=== PATIENT | female | born 1935 | race Hispanic/Latino ===

== ENCOUNTER 2017-03-11 06:24 | Inpatient (IN) | payer MEDICARE, OTHER ==
[2017-03-11 06:26] VITALS: BMI 20.2
--- NOTE | 2017-03-11 06:54 | CT ---
EXAM: CT Head Without Intravenous Contrast EXAM DATE/TIME: 03/11/2017 6:29 AM CLINICAL HISTORY: 81 years old, female; Signs and symptoms; Syncope and collapse; Additional info: Code stroke TECHNIQUE: Axial computed tomography images of the head/brain without intravenous contrast. All CT scans at this facility use one or more dose reduction techniques, viz.: automated exposure control; ma/kV adjustment per patient size (including targeted exams where dose is matched to indication; i.e. head); or iterative reconstruction technique. Coronal and sagittal reformatted images were created and reviewed. COMPARISON: MR - BRAIN WITHOUT CONTRAST 10/05/2015 9:57:04 AM FINDINGS: Brain: Cerebral atrophy. Small encephalomalacia right parietal convexity. Periventricular and subcortical white matter hypoattenuation of small vessel disease. No edema. No intra-axial or extra-axial hemorrhage. Ventricles: Unremarkable. No ventriculomegaly. Bones/joints: Unremarkable. No acute fracture. Soft tissues: Unremarkable. Vasculature: Vascular calcifications of cavernous carotid arteries. Sinuses: Minimal mucosal thickening sphenoid sinus. Mastoid air cells: Unremarkable as visualized. No mastoid effusion. IMPRESSION: 1. No acute cerebral hemorrhage or edema. 2. 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
--- NOTE | 2017-03-11 06:58 | EDPD ---
HPI Stroke - General Time Seen by Provider: 03/11/17 06:28 Chief Complaint: Weakness/Neurological Deficit Historian: Patient, EMS - History of Present Illness Narrative History of Present Illness (Free Text): 03/11/17 06:54 Pt. presented to ED PMH TIA for evaluation of right upper arm weakness/numbness upon awakening from sleep.States she also felt some facial drooping.States symptoms appear to have resolved upon arrival in ED.Pt. denies any chest pain or sob.No hx. of any fever/cough.No neck or back pain.No headache. Timing: Improved - Location Locate Right: Face, Upper extremity rTPA Inclusion/Exclusion - Refusal of Treatment Patient Refused Treatment: No - Inclusion Criteria for Altepase Patient is 18 years or Older: Yes The Clinical Diagnosis of Ischemic Stroke That is Causing a Potentially Disabling Neurological Deficit: No Time of Onset is Well Established to be Less Than 270 Minute Before Treatment Would Begin: No Risk/Benefit Discussed With Patient/Family Member Present: Yes - Exclusion Criteria for Altepase Uncontrolled Hypertension at Time of Treatment (Systolic BP above 185 or Diastolic BP above 110 mmHg): No Active Internal Bleeding: No Known Bleeding Diathesis Including but Not Limited to: Platelets Below 100,000/ mm,PTT Above 40 sec After Heparin Use, Current Use of Oral Anitcoagulant With INR Greater Than 1.7 or PT Greater Than 15 secs: No Evidence of an Intracranial Hemorrhage: No Evidence of Major Acute Infarct With Signs Greater Than 1/3 MCA Territory: No Suspicion of Subarachnoid Hemorrhage on Pretreatment Evaluation Even if CT Head Negative For Hemorrhage: No - Warning to TPA With Conditions Following Conditions Weighed Against Anticipated Benefit: Yes Condition: Rapid Improvement Past Medical History - Provider Review Nursing Documentation Reviewed: Yes - Travel History Have you recently traveled outside [place] w/in the past 3 mons?: No - Infectious Disease Hx of Infectious Diseases: None - Reproductive Menopause: Yes - Neurological Hx Transient Ischemic Attacks (TIA): Yes - Musculoskeletal/Rheumatological Hx Arthritis: Yes (Hands) - Psychiatric Hx Substance Use: No - Surgical History Hx Tonsillectomy: Yes - Suicidal Assessment Feels Threatened In Home Enviroment: No Family/Social History - Family/Social History Family History: CVA/TIA Allergies/Home Meds Allergies/Adverse Reactions: Allergies codeine Allergy (Verified 03/11/17 06:27) HEADACHE novacaine Allergy (Severe, Uncoded 11/21/13 19:26) Chest pain Home Medications: Home Meds Medication Instructions Recorded Confirmed Nitrofurantoin Macrocrystal 100 mg PO BID 03/11/17 03/11/17 [Nitrofurantoin Macrocrystals] Review of Systems - Review of Systems Constitutional: Normal Eyes: Normal ENT: Normal Respiratory: Normal Cardiovascular: Normal Gastrointestinal: Normal Genitourinary Female: Normal Musculoskeletal: Normal Skin: Normal Neurological: Focal Weakness, Facial Droop Endocrine: Normal Hemo/Lymphatic: Normal Psychiatric: Normal ED Stroke Physical Exam Vital Signs Temp Pulse Resp BP Pulse Ox 03/11/17 06:29 99.0 F 77 18 128/70 96 Temperature: Afebrile Blood Pressure: Normal Pulse: Regular Respiratory Rate: Normal Appearance: Positive for: Well-Appearing, Non-Toxic, Comfortable Pain Distress: None Mental Status: Positive for: Alert and Oriented X 3 Finger Stick Blood Glucose: 169 - Systems Exam Head: Present: Atraumatic, Normocephalic Pupils: Present: PERRL Extroacular Muscles: Present: EOMI Conjunctiva: Present: Normal Mouth: Present: Moist Mucous Membranes Neck: Present: Normal Range of Motion Respiratory/Chest: Present: Clear to Auscultation, Good Air Exchange. No: Respiratory Distress, Accessory Muscle Use Cardiovascular: Present: Regular Rate and Rhythm, Normal S1, S2. No: Murmurs Abdomen: Present: Normal Bowel Sounds. No: Tenderness, Distention, Peritoneal Signs Genitourinary/Pelvic Exam: Present: NI. No: C, E Back: Present: GCS, CN, SP Upper Extremity: Present: Normal Inspection, Neurovascularly Intact. No: Cyanosis, Edema Lower Extremity: Present: Normal Inspection. No: Edema Neurologic: Present: GCS=15, CN II-XII Intact, Speech Normal, Motor Func Grossly Intact, Normal Sensory Function Skin: Present: Warm, Dry, Normal Color. No: Rashes Lymphatic: Present: OX3, NI, NC Psychiatric: Present: Alert, Oriented x 3, Normal Insight, Normal Concentration Medical Decision Making ED Course and Treatment: 03/11/17 06:[address] Raymundo, Patient not a candidate for TPA. Will administer aspirin. 03/11/17 07:00 Patient signed out to Dr. Summers. 03/11/17 07:20 CT Head Without Intravenous Contrast Creator : CALL, ANNDictator : IMPRESSION: 1. No acute cerebral hemorrhage or edema. 2. 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 - RAD Interpretation Radiology Orders: 03/11/17 06:29 HEAD W/O (CODE STROKE) [CT] Stat CHEST PORTABLE [RAD] Stat - Transfer of Care Patient signed out to Dr:: Melina Pending Labs:: Labs/CXR//reassess/final disposition NIHSS Scale ([place]) Time Performed: 06:30 - How Severe is the Stoke Baseline Level of Consciousness: 0=Alert LOC to Questions: 0=Both comments correct LOC to commands: 0=Obeys both correctly Best Gaze: 0=Normal Visual: 0=No visual loss Facial: 0=Normal Motor Arm - Left: 0=No drift Motor Arm - Right: 0=No drift Motor Leg - Left: 0=No drift Motor Leg - Right: 0=No drift Limb Ataxia: 0=Absent Sensory: 1=Mild to moderate loss Best Language: 0=No aphasia Dysarthia: 0=Normal articulation Extinction & Inattention (Neglect): 0=Normal, no object Score: 1 Risk Level: Minor Stroke Risk Disposition/Present on Arrival - Present on Arrival Any Indicators Present on Arrival: No History of DVT/PE: No History of Uncontrolled Diabetes: No Urinary Catheter: No History of Decub. Ulcer: No History Surgical Site Infection Following: None - Disposition Have Diagnosis and Disposition been Completed?: No Diagnosis: Transient ischemic attack (TIA) Disposition Time: 07:00 Condition: STABLE Forms: Edutor (Swedish)
[2017-03-11 07:11] LABS: BASO # 0.03 K/mm3 (0.0-2.0); BASO % 0.3 % (0.0-3.0); EOS # 0.3 (0.0-0.7); EOS % 2.6 % (1.5-5.0); GRAN # 9.07 (1.4-6.5); GRAN % 84.4 % (50.0-68.0); HEMOGLOBIN 11.8 g/dL (12.0-16.0); LYMPH # 0.7 (1.2-3.4); MEAN CELL VOLUME 60.7 fl (80.0-105.0); MEAN CORPUSCULAR HEMOGLOBIN 19.3 pg (25.0-35.0); MEAN CORPUSCULAR HGB CONC 31.8 g/dl (31.0-37.0); MONO # 0.7 (0.1-0.6); MONO % 6.7 % (1.0-6.0); PLATELET COUNT 156 10^3/uL (120.0-450.0); RBC 6.11 10^6/uL (3.5-6.1); RED CELL DISTRIBUTION WIDTH 15.9 % (11.5-14.5); WHITE BLOOD COUNT 10.8 10^3/ul (4.5-11.0)
[2017-03-11 07:22] LABS: ALB/GLOB RATIO 1.3 (1.1-1.8); CALCIUM 9.3 mg/dL (8.4-10.5)
[2017-03-11 07:29] LABS: INR 1.14 (0.93-1.08); PARTIAL THROMBOPLASTIN TIME 26.7 Seconds (25.1-36.5); PROTHROMBIN TIME 13.1 SECONDS (9.4-12.5)
[2017-03-11 07:32] LABS: TROPONIN I 0.02 ng/mL
[2017-03-11] MEDS ORDERED: Azithromycin 500MG/NS 250ml 500 MG/250 ML BAG IVPB STA (07:51)
[2017-03-11] MEDS ORDERED: cefTRIAXone 1 gm 1 GM/100 ML BAG IVPB STA (07:51)
[2017-03-11 09:18] LABS: VENOUS BLOOD GAS BASE EXCESS 6.6 mmol/L (0.0-2.0); VENOUS BLOOD GAS PO2 61 mm/Hg (30-55); VENOUS BLOOD PH 7.42 (7.32-7.43)
--- NOTE | 2017-03-11 09:33 | RAD ---
HISTORY: tia COMPARISON: 11/21/2013 FINDINGS: LUNGS: There is a minimal infiltrate at the right lung base. The lungs are otherwise clear PLEURA: No significant pleural effusion identified, no pneumothorax apparent. CARDIOVASCULAR: Normal. OSSEOUS STRUCTURES: No significant abnormalities. VISUALIZED UPPER ABDOMEN: Normal. OTHER FINDINGS: None. IMPRESSION: There is a minimal infiltrate at the right lung base. The lungs are otherwise clear
--- NOTE | 2017-03-11 10:11 | ED PDOC ---
Physical Exam Vital Signs Temp Pulse Resp BP Pulse Ox 03/11/17 07:53 76 18 124/64 97 03/11/17 06:29 99.0 F 77 18 128/70 96 Finger Stick Blood Glucose: 169 Medical Decision Making ED Course and Treatment: 03/11/17 10:08 Patient endorsed to me from previous shift. Patient re-evaluated by me at 0715 with family at bedside. On re-exam, patient states she is back to her normal self. Denies right hand or arm weakness, denies any difficulty speaking. Family states her symptoms have resolved. Her neuro exam is at baseline on re-exam. Not a tpa candidate as rapid resolution of symptoms. Family reports cough for several weeks. On exam, rhonchi noted at right base, chest xray suggestive of infiltrate/ pneumonia. IV antibiotics initiated. Case d/w Dr. Newby, PMD, accepts admission to her service. Will consult neuro for likely TIA, pneumonia. Denies chest pain or sob. BP stable currently. On nasal cannula oxygen saturations 98%. - Lab Interpretations Lab Results: 03/11/17 07:00 03/11/17 07:00 Lab Results 03/11/17 07:25: Blood Type Confirm O POSITIVE 03/11/17 07:00: Blood Type O POSITIVE, Antibody Screen Negative, BBK History Checked No verified bt 03/11/17 07:00: Sodium 140, Potassium 4.1, Chloride 101, Carbon Dioxide 30, Anion Gap 14, BUN 21, Creatinine 1.1, Est GFR ( Amer) 58, Est GFR (Non- Af Amer) 48, Random Glucose 148 H, Calcium 9.3, Total Bilirubin 1.0, AST 47 H, ALT 38, Alkaline Phosphatase 115, Lactate Dehydrogenase 449, Total Creatine Kinase 48, Troponin I 0.02, Total Protein 7.0, Albumin 4.0, Globulin 3.0, Albumin/Globulin Ratio 1.3, Triglycerides 90, Cholesterol 250 H, LDL Cholesterol Direct 130 H, HDL Cholesterol 72 H 03/11/17 07:00: PT 13.1 H, INR 1.14 H, APTT 26.7 03/11/17 07:00: WBC 10.8, RBC 6.11 H, Hgb 11.8 L, Hct 37.1, MCV 60.7 L, MCH 19.3 L, MCHC 31.8, RDW 15.9 H, Plt Count 156, Gran % 84.4 H, Lymph % (Auto) 6.0 L, [place] % (Auto) 6.7 H, Eos % (Auto) 2.6, Baso % (Auto) 0.3, Gran # 9.07 H, Lymph # 0.7 L, [place] # 0.7 H, Eos # 0.3, Baso # 0.03 - RAD Interpretation Radiology Orders: 03/11/17 06:29 HEAD W/O (CODE STROKE) [CT] Stat CHEST PORTABLE [RAD] Stat - Medication Orders Current Medication Orders: Discontinued Medications Aspirin (Aspirin) 325 mg PO ONCE STA Stop: 03/11/17 07:21 Last Admin: 03/11/17 08:07 Dose: 325 mg Ceftriaxone Sodium (Rocephin 1 Gram Ivpb) 1 gm in 100 mls @ 200 mls/hr IVPB ONCE STA PRN Reason: Protocol Stop: 03/11/17 08:20 Last Admin: 03/11/17 08:55 Dose: 200 mls/hr eMAR Start Stop Document 03/11/17 08:55 [facility] (Rec: 03/11/17 08:56 [facility] [id number]) Intravenous Solution Start Date 03/11/17 Start Time 08:55 End Date 03/11/17 End time 09:25 Total Infusion Time 30 Azithromycin (Zithromax 500mg In Ns) 500 mg in 250 mls @ 166.667 mls/hr IVPB STAT STA PRN Reason: Protocol Stop: 03/11/17 09:20 Disposition/Present on Arrival - Present on Arrival Any Indicators Present on Arrival: No History of DVT/PE: No History of Uncontrolled Diabetes: No Urinary Catheter: No History of Decub. Ulcer: No History Surgical Site Infection Following: None - Disposition Have Diagnosis and Disposition been Completed?: Yes Diagnosis: Transient ischemic attack (TIA), Pneumonia Disposition: HOSPITALIZED Disposition Time: 08:00 Patient Plan: Admission, Telemetry Patient Problems: Current Active Problems Problem Status Onset Transient ischemic attack (TIA) Acute Condition: SERIOUS NIHSS Scale([place]) 2 Time Performed: 07:30 - How Severe is the Stoke Baseline Level of Consciousness: 0=Alert LOC to Questions: 0=Both comments correct LOC to commands: 0=Obeys both correctly Best Gaze: 0=Normal Visual: 0=No visual loss Facial: 0=Normal Motor Arm - Left: 0=No drift Motor Arm - Right: 0=No drift Motor Leg - Left: 0=No drift Motor Leg - Right: 0=No drift Limb Ataxia: 0=Absent Sensory: 0=Normal Best Language: 0=No aphasia Dysarthia: 0=Normal articulation Extinction & Inattention (Neglect): 0=Normal, no object Score: 0 Risk Level: No Stroke Risk
--- NOTE | 2017-03-11 12:09 | CP.PCM.CON ---
History of Present Illness - History of Present Illness History of Present Illness: 81 yr old woman who was in her usual state of health last night with no neurological complaints, and then woke up this morning with right arm numbness and paresthesias, and some difficulty speaking. The time of onset was unclear, therefore, she is not a TPA candidate. She came in to the ER at around 6:30 and by 715 AM, her symptoms had resolved. There is a history of prior tias, but there is no history of afib noted, or cardiac issues. She does not currently have any deficits, and is back to her baseline. No headache, no nausea, no vomiting, no dizziness, no visual field cuts. On exam this morning, she has no deficits. Review of Systems - Neurological Neurological: Paresthesias, Tingling Past Patient History - Infectious Disease Hx of Infectious Diseases: None - Past Social History Smoking Status: Former Smoker - CARDIAC Hx Hypercholesterolemia: Yes - NEUROLOGICAL Hx Transient Ischemic Attacks (TIA): Yes - MUSCULOSKELETAL/RHEUMATOLOGICAL Hx Arthritis: Yes (Hands) - PSYCHIATRIC Hx Substance Use: No - SURGICAL HISTORY Hx Tonsillectomy: Yes Meds Allergies/Adverse Reactions: Allergies Allergy/AdvReac Type Severity Reaction Status Date / Time codeine Allergy HEADACHE Verified 03/11/17 06:27 novacaine Allergy Severe Chest pain Uncoded 11/21/13 19:26 Physical Exam - Head Exam Head Exam: ATRAUMATIC Results - Vital Signs Recent Vital Signs: Last Vital Signs Temp 99.0 F 03/11/17 06:29 Pulse 76 03/11/17 07:53 Resp 18 03/11/17 07:53 BP 124/64 03/11/17 07:53 Pulse Ox 97 03/11/17 07:53 - Labs Result Diagrams: 03/11/17 07:00 03/11/17 07:00 Labs: Laboratory Results - last 24 hr 03/11/17 09:00 pO2 61 H VBG pH 7.42 VBG pCO2 50.0 VBG HCO3 32.4 H VBG Total CO2 33.9 H VBG O2 Sat (Calc) 94.6 H VBG Base Excess 6.6 H VBG Potassium 4.0 Sodium 137.0 Chloride 105.0 Glucose 127 H Lactate 1.0 FiO2 21.0 Venous Blood Potassium 4.0 Assessment & Plan - Assessment and Plan (Free Text) Assessment: 81 yr old woman with most likely tia in the left mca distribution, who is back to baseline. She will, however, need a complete stroke/tia workup. She is not a TPA candidate. Patient to be followed by Plan: 1. MRI Brain without kelsea 2. Echo 3. Carotid Dopplers 4. Start aspirin 325 mg po daily 5. Lipid profile 6. No speech or physical therapy needed.
--- NOTE | 2017-03-11 12:21 | CARD ---
APPROVED REPORT EKG Measurement Heart [id number] DC [id number] <Conclusion> Normal sinus rhythm Cannot rule out Anterior infarct, age undetermined Abnormal ECG
--- NOTE | 2017-03-11 13:08 | CT ---
PROCEDURE: CT Angiography of the neck with contrast HISTORY: TIA COMPARISON: None available. TECHNIQUE: Contiguous axial images of the neck were obtained from the level of the skull-base to the superior mediastinum in the arteriographic phase of enhancement. Coronal and sagittal reformats or also generated. IV contrast dose: 150 cc of Omni 350 Radiation Dose - DLP: 230 mGy-cm This CT exam was performed using one or more of the following dose reduction techniques: Automated exposure control, adjustment of the mA and/or kV according to patient size, and/or use of iterative reconstruction technique. FINDINGS: RIGHT CAROTID ARTERIES: Common Carotid Artery: Normal. Carotid Bifurcation: Normal. Internal Carotid Artery:Normal. External Carotid Artery (proximal branches): Normal. LEFT CAROTID ARTERIES: Common Carotid Artery: Normal. Carotid Bifurcation: Normal. Internal Carotid Artery:Normal. External Carotid Artery (proximal branches): Normal. VERTEBRAL ARTERIES: Right Vertebral Artery: Normal. Left Vertebral Artery: Normal. OTHER FINDINGS: None. IMPRESSION: Normal CT Angiography of the neck. CT Angiography of the Brain. HISTORY: TIA COMPARISON: None available. TECHNIQUE: CT angiography of the intracranial arteries was performed. Coronal and sagittal maximum intensity projection reformated images were generated. This CT exam was performed using one or more of the following dose reduction techniques: Automated exposure control, adjustment of the mA and/or kV according to patient size, and/or use of iterative reconstruction technique. FINDINGS: INTERNAL CEREBRAL ARTERIES: Unremarkable. The skull base, petrous, cavernous and supraclinoid segments are bilaterally widely patent. ANTERIOR CEREBRAL ARTERIES: Unremarkable. A1 and A2 segments are widely patent. Smaller distal branches unremarkable, as visualized. MIDDLE CEREBRAL ARTERIES: Unremarkable. M1 and M2 segments are widely patent. Perisylvian branches grossly symmetric. POSTERIOR CIRCULATION: Basilar Artery: Unremarkable. Distal Vertebral Arteries: Unremarkable. Posterior Cerebral Arteries: Unremarkable. Posterior Inferior Cerebellar Arteries: Unremarkable. ANEURYSM/ VASCULAR MALFORMATIONS: None. OTHER FINDINGS: None. IMPRESSION: Unremarkable CT Angiography of the Brain.
--- NOTE | 2017-03-11 15:27 | MRI ---
PROCEDURE: MRI BRAIN WITHOUT CONTRAST HISTORY: tia COMPARISON: None. TECHNIQUE: Multiplanar, multisequence MR images of the brain were obtained without intravenous contrast enhancement. FINDINGS: HEMORRHAGE: None DWI: No evidence of an acute or early subacute infarction. BRAIN PARENCHYMA: No mass effect or edema. Severe chronic microvascular changes are seen in the periventricular white matter. There is a more focal chronic infarct in the right parietal white matter VENTRICLES: Unremarkable. No hydrocephalus. CRANIUM: Unremarkable. ORBITS: Grossly unremarkable. PARANASAL SINUSES/MASTOIDS: There is mucosal thickening in the sphenoid sinus VASCULAR SYSTEM: Skull base flow voids intact. OTHER FINDINGS: None. IMPRESSION: Severe chronic microvascular changes. No acute intracranial findings
[2017-03-11] MEDS ORDERED: Influenza Vaccine 60 mcg/0.5 mL SYR (4YR UP) IM ONE (18:15)
[2017-03-11] MEDS ORDERED: Pneumococcal 23-Valent Vaccine IM ONE (18:15)
--- NOTE | 2017-03-11 18:41 | CON ---
DATE: 03/11/2017 CHIEF COMPLAINT: Signs of right arm numbness and paresthesia, and difficulty speaking. HISTORY OF PRESENT ILLNESS: This is an 81-year-old woman with past medical history of hypercholesterolemia, former smoker, who came in; woke up this morning with right arm numbness and paresthesia, transient, with some difficulty speaking which resolved when she came into the ER. MRI of the brain showed no acute intracranial abnormalities, chronic ischemic changes. CT angio of the head was unremarkable. Currently, she is doing much better. No focal weakness of the extremities. PAST MEDICAL HISTORY: Hypercholesterolemia, former smoker. SOCIAL HISTORY: Former smoker. No illicit drug use, smoking, or EtOH abuse. ALLERGIES: ALLERGIC TO CODEINE. MEDICATIONS: Reviewed by nurse per reconciliation sheet. PHYSICAL EXAMINATION: VITAL SIGNS: Temperature 99, pulse rate 68, blood pressure 119/69, respiratory rate 18, oxygen saturation 97% by room air. GENERAL: The patient is sitting up in bed, in no acute distress. HEENT: Head is atraumatic and normocephalic. PERRLA. Extraocular muscles intact. NECK: Supple. No JVD. No adenopathy noted. LUNGS: Clear to auscultation. No adventitious sounds. HEART: S1 and S2. Normal rate and rhythm. No murmurs, rubs, or gallops. ABDOMEN: Soft, nontender, and nondistended. Bowel sounds present. EXTREMITIES: No clubbing. No cyanosis. Peripheral pulses are 2+ felt bilaterally. NEUROLOGIC: The patient is alert and oriented to person, place, month, and year. Speech is fluent without any errors. Cranial nerves II through XII intact. Motor exam: Moves all extremities equally . Toes are downgoing bilaterally. Sensory exam to light touch, pinprick, proprioception, and vibration intact. DTRs are 2+ throughout. Coordination, [id number] intact. Gait is deferred for now. LABORATORY DATA: Sodium 140, potassium 4.1, chloride of 101, carbon dioxide of 30, BUN of 21, creatinine of 1.1, glucose of 148, A1c 6, cholesterol 250, LDL is 130. ASSESSMENT AND PLAN: This is a 31-year-old woman with history of former smoker and dyslipidemia. Had transient slurred speech and right arm numbness and weakness which had resolved. MRI of the brain showed no acute intracranial abnormalities, just chronic ischemic changes. At this time, her symptoms are most likely secondary to underlying transient ischemic attack. RECOMMENDATIONS: 1. Aspirin 81 mg and Lipitor 40 mg p.o. daily for stroke prevention. 2. Echocardiogram. 3. Needs low fat, low cholesterol diet. 4. Follow up as an outpatient. Kang Wright MD
[2017-03-11 18:59] LABS: PH,URINE 6.5 (4.7-8.0); URINE BILIRUBIN NEGATIVE (NEGATIVE); URINE BLOOD SMALL (NEGATIVE); URINE GLUCOSE (UA) NEGATIVE (NEGATIVE); URINE LEUKOCYTE ESTERASE SMALL Leu/uL (NEGATIVE); URINE NITRATE POSITIVE (NEGATIVE); URINE PROTEIN NEGATIVE mg/dL (<30 mg/dL); URINE UROBILINOGEN 0.2 E.U./dL (<1 E.U./dL)
[2017-03-11 19:02] LABS: URINE APPEARANCE SL CLOUDY (CLEAR); URINE COLOR YELLOW (YELLOW)
[2017-03-11 19:08] LABS: URINE BACTERIA LARGE (NEG); URINE WBC 20 - 25 /hpf (0-6)
--- NOTE | 2017-03-11 19:29 | US ---
EXAM: US Pelvis Ltd Bladder EXAM DATE/TIME: 03/11/2017 4:54 PM CLINICAL HISTORY: 81 years old, female; Abnormal findings; Abnormal lab test; Microscopic hematuria; Additional info: Gross hematuria, urinary retention? TECHNIQUE: Real-time ultrasound of the bladder with image documentation. COMPARISON: US - BLADDER ONLY/RESIDUAL URINE 2015-09-05 14:30 FINDINGS: Urinary bladder is distended. Estimated bladder volume is 1284 cc. Postvoid imaging was performed. Bladder remains distended. Estimated postvoid residual volume is 971 cc. IMPRESSION: 75% post void residual
--- NOTE | 2017-03-11 19:32 | US ---
EXAM: US Retroperitoneal Limited, Renal EXAM DATE/TIME: 03/11/2017 4:54 PM CLINICAL HISTORY: 81 years old, female; Abnormal findings; Abnormal lab test; Abnormal kidney function lab tests; Additional info: Gross hematuria, TECHNIQUE: Real-time ultrasound of the retroperitoneum (limited) with image documentation. COMPARISON: US - RENAL 2015-09-05 14:22 FINDINGS: Right kidney: Right kidney measures approximately 10 x 5.4 x 6 cm. There is intrarenal flow on color imaging. There is pelvocaliectasis. Corticomedullary differentiation is not visualized. Left kidney: Left kidney measures approximately 9.7 x 5.8 x 5 cm. There is pelvocaliectasis.There is intrarenal flow on color imaging. There is pelvocaliectasis. Corticomedullary differentiation is not visualized. IMPRESSION: Bilateral pelvocaliectasis
[2017-03-12 07:02] VITALS: O2SAT 100
[2017-03-12 07:05] LABS: HEMOGLOBIN 10.5 g/dL (12.0-16.0); MEAN CELL VOLUME 60.4 fl (80.0-105.0); MEAN CORPUSCULAR HEMOGLOBIN 19.3 pg (25.0-35.0); PLATELET COUNT 169 10^3/uL (120.0-450.0); RBC 5.43 10^6/uL (3.5-6.1); WHITE BLOOD COUNT 6.8 10^3/ul (4.5-11.0)
[2017-03-12 07:31] LABS: ALB/GLOB RATIO 1.2 (1.1-1.8); ALBUMIN 3.4 g/dL (3.0-4.8); ALT/SGPT 66 U/L (7-56); AST/SGOT 82 U/L (14-36); BLOOD UREA NITROGEN 27 mg/dL (7-21); CALCIUM 8.7 mg/dL (8.4-10.5); GFR AFRICAN-AMERICAN > 60; GFR NON-AFRICAN AMERICAN 53
--- NOTE | 2017-03-12 08:14 | HP ---
CHIEF COMPLAINT: Weakness. HISTORY OF PRESENT ILLNESS: An 81-year-old female with history of hyperlipidemia and old CVA who was brought to Emergency Room by her family. The patient woke up this morning with fatigue and weakness. She complaint of having slurred speech and weakness in her right hand. She denies any headache, blurry vision, or loss of consciousness. The patient was brought to Emergency Room by her daughter for evaluation. She felt better in Emergency Room and her symptoms resolved. The patient denies any fever. She has some cough for the past 2 weeks due to cold symptoms, but denies any shortness of breath or chest pain. 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 PAST SURGICAL HISTORY: Denies any surgical history. ALLERGIES: THE PATIENT HAS ALLERGIES TO CODEINE AND NOVOCAIN. PRESENT MEDICATIONS: She is not taking any medication. The patient has aspirin 81 mg daily and lovastatin 20 mg daily, but stopped both medications 2 months ago. FAMILY HISTORY: History of heart disease. No history of stroke or cerebellar bleeding. SOCIAL HISTORY: The patient denies current smoking. She is ex-smoker, but quit 30 years ago. The patient denies any alcohol or drug use. She is retired. She is a . She lives presently with her daughter. The patient is fully independent of activity of daily living. The patient is still working part-time in school. REVIEW OF SYSTEMS: The patient denies any loss of appetite, weight loss. She denies any fever. She denies any dysphagia, sore throat. Denies any nasal congestion. The patient complains of dry cough. Denies any chest pain or shortness of breath or wheezing. Denies any diaphoresis or heart palpitation. The patient denies any abdominal pain, diarrhea, constipation, nausea, or vomiting. The patient complains of urinary discomfort and urine of brown color for the past 10 days. She was recently treated for urinary tract infection and finished antibiotics. Neurological; the patient denies any blurry vision, dysphagia. Denies any weakness. Extremities; she complains of tingling and numbness of both feet. She complaints of chronic anxiety. Difficult with sleeping, but denies any depression. PHYSICAL EXAMINATION GENERAL: The patient was evaluated, alert, awake, oriented, in no acute form of distress. VITAL SIGNS: Stable, she is afebrile, temperature 99, pulse 80, regular, blood pressure 122/78, respiratory rate 16, oxygen saturation 95% on room air. HEENT: Head is normocephalic, atraumatic. Eyes with pupils reactive to light. Oral mucosa is moist. No lesions. NECK: Supple. No neck masses or JVD. LUNGS: Clear to auscultation. HEART: With regular rhythm and rate. ABDOMEN: Soft, nontender, nondistended. No masses palpable. Bowel sounds are positive. EXTREMITIES: With no edema and palpable distal pulses. There are chronic skin changes related to chronic varicose vein. NEUROLOGIC: Alert, awake, and oriented. Normal gag reflex. No sensory, motor deficit. No pathological deficits. DIAGNOSTIC TEST: CBC showed WBC 10.8, hemoglobin 11.8, hematocrit 37.1, platelet count 156. Chemistries showed normal electrolytes with normal renal function. BUN 21, creatinine 1.1, random glucose was 148. Cholesterol high 250 with LDL 130 and HDL 72. Urinalysis is still pending. Ct scan of head showed old right parietal CVA , no acute bleeding or ischemia. ASSESSMENT: 1. An 81-year-old female admitted for nonspecific neurological symptoms, must rule out transient ischemic attack versus cerebrovascular accident. 2. Hyperlipidemia. 3. Right lung infiltration rule out pneumonia. 4. Gross hematuria. PLAN OF TREATMENT: Will be admitted for observation to telemetry. We will monitor neurological status. Neurologist was called in consult. Continue aspirin. We will start atorvastatin. Due to abnormal chest x-ray, the patient was treated with Rocephin and Zithromax. We will continue Zithromax p.o. I will order renal and bladder ultrasound for evaluation of recurrent UTIs and gross hematuria. Angélica Guerrero MD [facility]
[2017-03-12 12:18] VITALS: BP 110/60; PULSE 82; RESP 18; TEMP 99.1
--- NOTE | 2017-03-12 15:17 | DS ---
HISTORY OF PRESENT ILLNESS: The patient was admitted for new onset of numbness, slurred speech with symptoms resolved yesterday in the emergency room. The patient is feeling well. She denies any headache, dizziness, numbness or weakness. Her appetite is fair. The patient continues with voiding darker brown urine, but she denies any abdominal pain or dysuria. PHYSICAL EXAMINATION GENERAL: She is comfortable, alert, awake, oriented. VITAL SIGNS: This morning are stable, her temperature 99, pulse 75 and regular, blood pressure 96/47, respiratory rate 20, her oxygen saturation is 100% on room air. HEENT: Head is normocephalic, atraumatic. Eyes: Pupils are reactive to light. No jaundice. Oral mucosa is moist NECK: Supple. LUNGS: Clear to auscultation. HEART: Regular rhythm and rate. ABDOMEN: Soft, nontender, nondistended. No masses palpable. EXTREMITIES: With no edema. DIAGNOSTIC STUDIES: This morning pertinent finding, WBC normal at 6.8, hemoglobin at 10.5, hematocrit 32.8. Her chemistry is normal. Urinalysis showed positive nitrite and small amount of blood. Urine culture is still pending. Her MRI and MRA of the brain were read as normal, except an old right CVA. Echocardiogram is still pending. Renal and bladder ultrasounds are significant for bilateral hydronephrosis, no kidney stones. There is also significant urinary retention of 900 mL after the patient voided. ASSESSMENT: 1. An 81-year-old female with episode of transient ischemic attack, which resolved in the emergency room. 2. Hematuria with hydronephrosis and urinary retention. 3. Abnormal chest x-ray with small infiltration in the right lung, patient is asymptomatic. 4. Hyperlipidemia. PLAN OF TREATMENT: I requested Urology consult for evaluation of hydronephrosis and urinary retention. We are planning to discharge the patient home this afternoon if no other procedures are planned from Urology side. The patient will be resuming lovastatin 20 mg daily and one aspirin 81 mg daily. The patient will be also discharged home with a dose of Levaquin 500 mg once a day for 7 days. The patient was advised to follow up with primary care physician and urologist as outpatient. Angélica Guerrero MD [facility] # [id number] MTDD
--- NOTE | 2017-03-12 17:20 | CARD ---
APPROVED REPORT EXAM: Two-dimensional and M-mode echocardiogram with Doppler and color Doppler. INDICATION CVA/TIA 2D DIMENSIONS Left Atrium (2D)3.2 (1.6-4.0cm)IVSd0.7 (0.7-1.1cm) LVDd4.1 (3.9-5.9cm)PWd0.9 (0.7-1.1cm) LVDs2.4 (2.5-4.0cm)FS (%) 40.1 % LVEF (%)71.3 (>50%) M-Mode DIMENSIONS Aortic Root3.10 (2.2-3.7cm)Aortic Cusp Exc.1.50 (1.5-2.0cm) Aortic Valve AoV Peak Bbzpibyk444.0cm/La Peak GR.11mmHg Mitral Valve MV E Qfqbavjq34.4cm/sMV A Nuiivmde090.0cm/sE/A ratio0.8 TDI Lateral E' Peak V5.65cm/sMedial E' Peak V4.58cm/sE/Lateral E'15.3 E/Medial E'18.9 Pulmonary Valve PV Peak Hzhdtoit15.0cm/sPV Peak Grad.2mmHg Tricuspid Valve TR Peak Nibxbfpf400js/sRAP WNDCMETP17nhKzZC Peak Gr.27mmHg [id number] LEFT VENTRICLE The left ventricle is normal size. There is normal left ventricular wall thickness. The left ventricular function is normal. The left ventricular ejection fraction is within the normal range. There is normal LV segmental wall motion. Transmitral Doppler flow pattern is Grade I-abnormal relaxation pattern. RIGHT VENTRICLE The right ventricle is normal size. There is normal right ventricular wall thickness. The right ventricular systolic function is normal. ATRIA The left atrium size is normal. The right atrium size is normal. AORTIC VALVE The aortic valve is mildly sclerotic. No aortic regurgitation is present. There is no aortic valvular stenosis. MITRAL VALVE The mitral valve is mildly thickened. Mitral regurgitation is trace. TRICUSPID VALVE There is mild tricuspid regurgitation. There is mild pulmonary hypertension. GREAT VESSELS The aortic root is normal in size. <Conclusion> The left ventricle is normal size. There is normal left ventricular wall thickness. The left ventricular function is normal. The left ventricular ejection fraction is within the normal range. There is normal LV segmental wall motion. Transmitral Doppler flow pattern is Grade I-abnormal relaxation pattern. There is mild tricuspid regurgitation. There is mild pulmonary hypertension.
--- NOTE | 2017-03-13 00:47 | US ---
PROCEDURE: Bilateral carotid artery duplex ultrasound HISTORY: Carotid stenosis PHYSICIAN(S): Geovani Steele MD. TECHNIQUE: Duplex sonography and color-flow Doppler were used to evaluate the carotid bifurcations and limited segments of the vertebral arteries bilaterally. FINDINGS: There is mild to moderate smooth heterogeneous plaque noted at the carotid bifurcations bilaterally. The peak systolic velocity in the proximal right internal carotid artery is 126 cm/sec. This corresponds to a 40-59 percent proximal right ICA stenosis. Normal systolic velocities are noted in the proximal right external carotid artery. There is antegrade flow in the right vertebral artery. The peak systolic velocity in the proximal left internal carotid artery is 141 cm/sec. This corresponds to a 40-59 percent proximal left ICA stenosis. Normal systolic velocities are noted in the proximal left external carotid artery. There is antegrade flow in the left vertebral artery. IMPRESSION: 1. Bilateral 40-59 percent proximal ICA stenoses. 2. Antegrade flow in both vertebral arteries.
--- NOTE | 2017-03-13 13:51 | PQF PNEUMO ---
DR. STANTON, Please verify if PNEUMONIA was ruled in or ruled out. This form is a permanent part of the medical record Clarification of your documentation is requested to better reflect the severity of illness and intensity of treatment of your patient. Indicators present [] Documented diagnosis of pneumonia [X] X-ray findings: [] Positive Sputum cultures [] Cough w/ fever [] Abnormal lungs sounds [] Poor gag reflex [] Speech consults/swallow evaluation [] Vent dependence [] Other: [] Location in the medical record that reflects the above clinical findings: [] H&P rule out pneumonia Treatment Provided: IV Rocephin , oral Zithromax PHYSICIAN'S RESPONSE Based on your medical judgment of the clinical indicators outlined above, are you treating this patient for a known or suspected: [] Aspiration pneumonia [] Community acquired pneumonia [] Ventilator associated pneumonia [] Viral pneumonia [] Bacterial pneumonia Please specify organism: [] [] Other, please indicate [X] If Unable to Determine, please check the box, sign and date. Present On Admission (POA) Indicator: [] Present at the time of admission [] Not present at the time of admission [X] Clinically Undetermined In responding to this query, please exercise your independent professional judgment. The fact that a question is asked does not imply that any particular answer is desired or expected. Thank you for your clarification on this documentation. If you have any questions please call:[ ] * Thank you, [X] ALEYDA tape cutter [facility]
== END 2017-03-12 18:19 | disposition home or self-care (01) | DRG 69 ==
LOC: ED 06:24 → ERH 07:54 → 3RSO 15:39
PROVIDERS: ADMIT Family Medicine; ATTEND Family Medicine
DX: G45.9 Transient cerebral ischemic attack, unspecified (principal); N13.30 Unspecified hydronephrosis; R31.0 Gross hematuria; E78.00 Pure hypercholesterolemia, unspecified; Z86.73 Personal history of transient ischemic attack (TIA), and cerebral infarction without residual deficits; Z87.891 Personal history of nicotine dependence

== ENCOUNTER 2017-03-22 01:06 | Inpatient (IN) | payer MEDICARE, OTHER ==
--- NOTE | 2017-03-22 01:25 | EDPD ---
HPI Stroke - General Time Seen by Provider: 03/22/17 01:08 Chief Complaint: Weakness/Neurological Deficit Historian: EMS - History of Present Illness Narrative History of Present Illness (Free Text): 03/22/17 01:10 Kellen Zavala is an 81 year old female, whose past medical history includes TIA, who presents to the Emergency department brought in by EMS for altered mental status and left-sided weakness tonight. As per EMS, patient has been experiencing diffuse headache and lethargy for the past 2 days. EMS states patient called her daughter at 00:00, but daughter noted patient was not making any sense while talking on the phone. Daughter states after arriving to check on the patient, patient was altered/disoriented and had 1 seizure for approximately 5 minutes. EMS states en route to the hospital, patient had 2 more focal seizures on her left upper extremity. EMS also note left upper extremity weakness. Code Stroke called by EMS while en route to ER. Patient was recently admitted to the hospital on 03/11/2017 for TIA and treated for UTI. Limited HPI and ROS secondary to patient's altered mental status. Date:: 03/22/17 Time: 01:10 Onset:: Just prior to presenting Timing: Currently Symptomatic Context: Home Associated Symptoms: Dysarthria, Seizure Exacerbated by: Nothing Relieved by: Nothing - Location Location: Mental Status, Speech Locate Left: Upper extremity rTPA Inclusion/Exclusion - Refusal of Treatment Patient Refused Treatment: No - Inclusion Criteria for Altepase Patient is 18 years or Older: Yes The Clinical Diagnosis of Ischemic Stroke That is Causing a Potentially Disabling Neurological Deficit: Yes Time of Onset is Well Established to be Less Than 270 Minute Before Treatment Would Begin: Yes Risk/Benefit Discussed With Patient/Family Member Present: Yes - Exclusion Criteria for Altepase Uncontrolled Hypertension at Time of Treatment (Systolic BP above 185 or Diastolic BP above 110 mmHg): No Active Internal Bleeding: No Known Bleeding Diathesis Including but Not Limited to: Platelets Below 100,000/ mm,PTT Above 40 sec After Heparin Use, Current Use of Oral Anitcoagulant With INR Greater Than 1.7 or PT Greater Than 15 secs: No Evidence of an Intracranial Hemorrhage: No Evidence of Major Acute Infarct With Signs Greater Than 1/3 MCA Territory: No Suspicion of Subarachnoid Hemorrhage on Pretreatment Evaluation Even if CT Head Negative For Hemorrhage: No - Warning to TPA With Conditions Following Conditions Weighed Against Anticipated Benefit: Yes Condition: Seizure at Onset of Stroke Past Medical History - Provider Review Nursing Documentation Reviewed: Yes - Infectious Disease Hx of Infectious Diseases: None - Cardiac Hx Cardiac Disorders: Yes - Pulmonary Hx Respiratory Disorders: Yes (used to smoke cigarettes.Quit) - Neurological Hx Neurological Disorder: Yes Hx Transient Ischemic Attacks (TIA): Yes - HEENT Hx HEENT Disorder: Yes (tonsillectomy) Hx Deafness: Yes (right ear.) - Renal Hx Renal Disorder: No - Endocrine/Metabolic Hx Endocrine Disorders: No - Hematological/Oncological Hx Blood Disorders: No - Integumentary Hx Dermatological Disorder: Yes Other/Comment: Bilateral le redness,cellulitis,flushed painful skin. - Musculoskeletal/Rheumatological Hx Musculoskeletal Disorders: Yes Hx Arthritis: Yes (Hands) Hx Falls: Yes - Gastrointestinal Hx Gastrointestinal Disorders: No - Genitourinary/Gynecological Hx Genitourinary Disorders: Yes Hx Urinary Tract Infection: Yes - Psychiatric Hx Psychophysiologic Disorder: No Hx Depression: No Hx Emotional Abuse: No Hx Physical Abuse: No Hx Substance Use: No - Surgical History Hx Tonsillectomy: Yes - Anesthesia Hx Anesthesia: Yes Hx Anesthesia Reactions: No Hx Malignant Hyperthermia: No - Suicidal Assessment Feels Threatened In Home Enviroment: No Family/Social History - Family/Social History Family History: Non-Contributory - DrMiguel Review Nursing documentation reviewed.: Yes Allergies/Home Meds Allergies/Adverse Reactions: Allergies codeine Allergy (Verified 03/22/17 01:09) HEADACHE novacaine Allergy (Severe, Uncoded 03/22/17 01:09) Chest pain Home Medications: Home Meds Medication Instructions Recorded Confirmed Nitrofurantoin Macrocrystal 100 mg PO BID 03/11/17 03/11/17 [Nitrofurantoin Macrocrystals] Review of Systems - Review of Systems Systems not reviewed;Unavailable: Altered Mental Status Neurological: Focal Weakness (+left upper extremity weakness), Seizure, Other (+ altered mental status) ED Stroke Physical Exam Vital Signs Reviewed: Yes Temperature: Afebrile Blood Pressure: Normal Pulse: Regular Respiratory Rate: Normal Appearance: Positive for: Non-Toxic Mental Status: Positive for: Lethargic - Systems Exam Head: Present: Atraumatic, Normocephalic Pupils: Present: PERRL Extroacular Muscles: Present: Other (Left-sided deviation, fixed gaze) Conjunctiva: Present: Normal Mouth: Present: Moist Mucous Membranes Respiratory/Chest: Present: Clear to Auscultation, Good Air Exchange. No: Respiratory Distress, Accessory Muscle Use Cardiovascular: Present: Regular Rate and Rhythm, Normal S1, S2. No: Murmurs Abdomen: Present: Normal Bowel Sounds. No: Tenderness, Distention, Peritoneal Signs Upper Extremity: Present: Capillary Refill < 2s, Other (Flaccid left upper extremity). No: Cyanosis, Edema, Tenderness, Swelling, Erythema Lower Extremity: No: Edema Neurologic: Present: Pronator Drift (Flaccid left upper extremity) Skin: Present: Warm, Dry, Normal Color. No: Rashes Psychiatric: Present: Lethargic Medical Decision Making ED Course and Treatment: 03/22/17 01:10 Impression: 81 year old female brought in for altered mental status, seizure, and left- sided weakness prior to arrival. Differential Diagnosis included but are not limited to: TIA vs. CVA Plan: -- CT Head -- EKG --Chest X-ray -- Labs, troponin, lipid panel, blood type and screen -- Reassess and disposition Prior Visits: Notes and results from previous visits were reviewed. On 03/11/2017, pt was seen in the Emergency department for right arm weakness/ numbness and facial droop. Pt was admitted to the hospital for further evaluation. Progress Notes: Code Stroke called by EMS en route to ER. Pt seen on arrival, taken to CT scan. 03/22/17 01:25 Reviewed EKG, sinus tachycardia at 112 bpm[address] Non-specific ST/T wave changes. 03/22/17 01:30 Chest X-ray reviewed, shows no acute processes. CT Head shows: Brain: Bilateral white matter changes. This is nonspecific and may include microangiopathic disease, small lacunae of indeterminate chronicity, chronic infarcts and/or encephalomalacia. Right parietal encephalomalacia. Atrophy. Vascular calcification. No hemorrhage. No edema. Ventricles: No hydrocephalus. Bones: Skull is intact. Sinuses: Trace left sphenoid sinus disease. Mastoid air cells: No mastoid effusion. IMPRESSION: Chronic changes as above. Acute infarcts/early ischemic changes may not be detectable by this modality; MRI is more sensitive in detecting acute ischemia. 03/22/17 01:[address] Guerra, neurologist, who is aware and agrees with plan. States pt is a candidate for tPA 03/22/17 01:49 Discussed results and plan with family present at bedside. Family report patient has been experiencing dark stools for 1 week. Rectal exam performed, RN present as dry cleaning checker, Guaiac negative. Discussed tPA with family, family unsure if they want to proceed with tPA at this time. 03/22/17 02:18 Spoke with family at beside. Family now agreeable with plan to administer tPA, consent given by family.explained all risks of internal bleeding, family aware of risks consent to tpa Case discussed with Dr. Newby, who is aware and agrees with plan. Accepts pt in to her service. 03/22/17 03:[address] Cueva, epic professional, who is aware and agrees to evaluate pt. Pt will be admitted to ICU for cerebral infarction. 03/22/17 14:49 - Critical Care Critical Care Minutes: 30 minutes Narrative Critical Care (Text): Management of cerebral infarction - Lab Interpretations I have reviewed the lab results: Yes - RAD Interpretation Radiology Orders: 03/22/17 01:09 HEAD W/O (CODE STROKE) [CT] Stat 03/22/17 01:15 CHEST PORTABLE [RAD] Stat Wax Machine Operator: ED Physician, Radiologist - EKG Interpretation Interpreted by ED Physician: Yes Type: 12 lead EKG - Scribe Statement The provider has reviewed the documentation as recorded by the Scribevin Saldana Provider Scribe Attestation: All medical record entries made by the Scribe were at my direction and personally dictated by me. I have reviewed the chart and agree that the record accurately reflects my personal performance of the history, physical exam, medical decision making, and the department course for this patient. I have also personally directed, reviewed, and agree with the discharge instructions and disposition. NIHSS Scale ([place]) Time Performed: 01:10 - How Severe is the Stoke Baseline Level of Consciousness: 1=Drowsy LOC to Questions: 1=One correct LOC to commands: 1=Obeys one correctly Best Gaze: 2=Forced deviation Visual: 0=No visual loss Facial: 1=Minor asymmetry Motor Arm - Left: 3=No effort against gravity (falls immediately) Motor Arm - Right: 1=Drift noted before 10 sec Motor Leg - Left: 3=No effort against gravity (falls immediately) Motor Leg - Right: 3=No effort against gravity (falls immediately) Limb Ataxia: 1=Present Upper or Lower Sensory: 1=Mild to moderate loss Best Language: 1=Mild to moderate aphasia Dysarthia: 1=Mild to moderate slurring Extinction & Inattention (Neglect): 0=Normal, no object Score: 20 Risk Level: Mod/Sev Stroke Risk Disposition/Present on Arrival - Present on Arrival Any Indicators Present on Arrival: No History of DVT/PE: No History of Uncontrolled Diabetes: No Urinary Catheter: No History of Decub. Ulcer: No History Surgical Site Infection Following: None - Disposition Have Diagnosis and Disposition been Completed?: Yes Diagnosis: Cerebral vascular accident Disposition: HOSPITALIZED Disposition Time: 03:20 Condition: CRITICAL
--- NOTE | 2017-03-22 01:31 | CT ---
EXAM: CT Head Without Intravenous Contrast CLINICAL HISTORY: 81 years old, female; Signs and symptoms; Other: Code stroke; Additional info: CVA TECHNIQUE: Axial computed tomography images of the head/brain without intravenous contrast. All CT scans at this facility use one or more dose reduction techniques, viz.: automated exposure control; ma/kV adjustment per patient size (including targeted exams where dose is matched to indication; i.e. head); or iterative reconstruction technique. Coronal and sagittal reformatted images were created and reviewed. COMPARISON: CTA HEAD NECK BUNDLE 2017-03-11 12:12 FINDINGS: Brain: Bilateral white matter changes. This is nonspecific and may include microangiopathic disease, small lacunae of indeterminate chronicity, chronic infarcts and/or encephalomalacia. Right parietal encephalomalacia. Atrophy. Vascular calcification. No hemorrhage. No edema. Ventricles: No hydrocephalus. Bones: Skull is intact. Sinuses: Trace left sphenoid sinus disease. Mastoid air cells: No mastoid effusion. IMPRESSION: Chronic changes as above. Acute infarcts/early ischemic changes may not be detectable by this modality; MRI is more sensitive in detecting acute ischemia.
[2017-03-22 02:02] LABS: BASO # 0.04 K/mm3 (0.0-2.0); BASO % 0.6 % (0.0-3.0); EOS # 0.3 (0.0-0.7); GRAN % 54.5 % (50.0-68.0); HEMOGLOBIN 11.1 g/dL (12.0-16.0); LYMPH # 2.1 (1.2-3.4); LYMPH % 32.8 % (22.0-35.0); MEAN CELL VOLUME 61.4 fl (80.0-105.0); MEAN CORPUSCULAR HEMOGLOBIN 19.3 pg (25.0-35.0); MEAN CORPUSCULAR HGB CONC 31.4 g/dl (31.0-37.0); MONO # 0.5 (0.1-0.6); MONO % 8.1 % (1.0-6.0); PLATELET COUNT 303 10^3/uL (120.0-450.0); RBC 5.75 10^6/uL (3.5-6.1); RED CELL DISTRIBUTION WIDTH 15.6 % (11.5-14.5); WHITE BLOOD COUNT 6.4 10^3/ul (4.5-11.0)
[2017-03-22 02:12] LABS: LDL CHOLESTEROL 109 mg/dL (0-129)
[2017-03-22 02:15] LABS: TROPONIN I < 0.01 ng/mL
[2017-03-22 02:20] VITALS: BMI 19.4
[2017-03-22 02:24] LABS: INR 1.05 (0.93-1.08); PARTIAL THROMBOPLASTIN TIME 26.8 Seconds (25.1-36.5); PROTHROMBIN TIME 12.1 SECONDS (9.4-12.5)
[2017-03-22 02:27] LABS: ALB/GLOB RATIO 1.3 (1.1-1.8); ALT/SGPT 45 U/L (7-56); AST/SGOT 41 U/L (14-36); BLOOD UREA NITROGEN 19 mg/dL (7-21); CALCIUM 9.7 mg/dL (8.4-10.5); GFR AFRICAN-AMERICAN > 60; GFR NON-AFRICAN AMERICAN 60; HDL CHOLESTEROL 53 mg/dL (29-60)
[2017-03-22] MEDS ORDERED: ALTEPLASE IV STA ×3 (02:27→02:43)
[2017-03-22] MEDS ORDERED: WATER FOR INJECTION IV STA ×2 (02:27→02:43)
--- NOTE | 2017-03-22 03:39 | CP.PCM.CON ---
<Vivian Servin - Last Filed: 03/22/17 04:51> History of Present Illness - History of Present Illness History of Present Illness: ICU consult note for Dr Cueva. 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 As per patient' s daughter, for the past 2 days patient has been complaining of scalp pain, which was relieved intermittently with med. Patient has had scalp pains prior and it was contributed to neuralgia. PMD was made aware and recommended exedrine. Then last night after having a cup of coffee with her family, patient decided to go upstairs, that's when the daughter said she heard patient moan, at around midnight. Upon checking on the patient, patient was holding her left hand, and was complaining of inability to make a fist, and weakness in the left hand. Patient then became diaphoretic and pale, and had foamy secretion in the moan. Patient appears to be shaking. Denies fall, trauma and LOC. No bowel or bladder incontinent. As per ED note, patient had 2 more seizure like activity en route to the hospital, no seizure like activity in the ED. EMS activated code stroke en route. Documented NIHSS score in the ED was 20, with BP of 143/63. Neurologist was alerted, Consent was obtained by ED physician, and TPA was started. Upon examination, 2 hours post TPA, patient is drowsy, easily arousable, but unable to open her eyes. Able to follow simple commands. Pointing to her head for pain. 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 PSHx: Denies FMH: denies h/o stroke in the family Social: former tobacco, denies alcohol or illicit drug use. Lives with daughter. Home meds: asa, and cholesterol medications ( don't remember the name) Allergy: Codeine, novacaine Review of Systems - Review of Systems Systems not reviewed;Unavailable: Altered Mental Status Past Patient History - Infectious Disease Hx of Infectious Diseases: None - Past Social History Smoking Status: Former Smoker - CARDIAC Hx Cardiac Disorders: Yes - PULMONARY Hx Respiratory Disorders: Yes (used to smoke cigarettes.Quit) - NEUROLOGICAL Hx Neurological Disorder: Yes Hx Transient Ischemic Attacks (TIA): Yes - HEENT Hx HEENT Problems: Yes (tonsillectomy) Hx Deafness: Yes (right ear.) - RENAL Hx Chronic Kidney Disease: No - ENDOCRINE/METABOLIC Hx Endocrine Disorders: No - HEMATOLOGICAL/ONCOLOGICAL Hx Blood Disorders: No - INTEGUMENTARY Hx Dermatological Problems: Yes Other/Comment: Bilateral le redness,cellulitis,flushed painful skin. - MUSCULOSKELETAL/RHEUMATOLOGICAL Hx Musculoskeletal Disorders: Yes Hx Arthritis: Yes (Hands) Hx Falls: Yes - GASTROINTESTINAL Hx Gastrointestinal Disorders: No - GENITOURINARY/GYNECOLOGICAL Hx Genitourinary Disorders: Yes Hx Urinary Tract Infection: Yes - PSYCHIATRIC Hx Psychophysiologic Disorder: No Hx Depression: No Hx Emotional Abuse: No Hx Physical Abuse: No Hx Substance Use: No - SURGICAL HISTORY Hx Tonsillectomy: Yes - ANESTHESIA Hx Anesthesia: Yes Hx Anesthesia Reactions: No Hx Malignant Hyperthermia: No Meds Allergies/Adverse Reactions: Allergies Allergy/AdvReac Type Severity Reaction Status Date / Time codeine Allergy HEADACHE Verified 03/22/17 01:09 novacaine Allergy Severe Chest pain Uncoded 03/22/17 01:09 - Medications Medications: Current Medications Sterile Water 39 ml/ Alteplase (, Recombinant) 39 mls @ 39 mls/hr IV STAT STA Stop: 03/22/17 03:42 Last Admin: 03/22/17 02:43 Dose: 39 mls/hr Physical Exam - Constitutional Appears: No Acute Distress, Cachectic, Chronically Ill - Head Exam Head Exam: ATRAUMATIC, NORMAL INSPECTION, NORMOCEPHALIC - Eye Exam Eye Exam: Normal appearance, PERRL. absent: EOMI, Scleral icterus Pupil Exam: NORMAL ACCOMODATION, PERRL - ENT Exam ENT Exam: Mucous Membranes Moist - Neck Exam Neck exam: Positive for: Normal Inspection. Negative for: Tenderness - Respiratory Exam Respiratory Exam: Clear to Auscultation Bilateral, NORMAL BREATHING PATTERN. absent: Rales, Rhonchi, Wheezes, Respiratory Distress, Stridor - Cardiovascular Exam Cardiovascular Exam: Tachycardia, REGULAR RHYTHM, RRR, +S1, +S2. absent: Gallop , JVD, Rubs, Systolic Murmur - GI/Abdominal Exam GI & Abdominal Exam: Normal Bowel Sounds, Soft. absent: Distended, Firm, Guarding, Rebound, Rigid, Tenderness - Extremities Exam Extremities exam: Positive for: normal inspection, pedal pulses present. Negative for: pedal edema, tenderness - Back Exam Back exam: NORMAL INSPECTION - Neurological Exam Neurological exam: Altered, Motor Sensory Deficit Additional comments: + pain to dull and sharp object on the right side of the upper and lower face, negative pain sensation to pinprick object on the upper face. Flaccid paralysis on the left upper and lower extremities. + Voluntary movement and withdrawal to pain on the right upper and lower extremities, + muscle rigidity with flexion and extension on the right upper and lower extremities. Negative rigidity with extension on the left upper and lower, but positive rigidity with flexion. Pain sensation to pinprick object in tact on the right lower, absent on the left lower. Upward going toes on the right, and upward and fanning out toes on the left. Unable to protrude her tongue, unable to smile and unable to puff her cheeks. Patient appears contracted. GCS 11 - Psychiatric Exam Psychiatric exam: Normal Affect, Normal Mood - Skin Skin Exam: Abrasion, Dry, Warm Results - Vital Signs Recent Vital Signs: Last Vital Signs Temp 97.9 F 03/22/17 03:30 Pulse 84 03/22/17 03:30 Resp 17 03/22/17 03:30 BP 148/77 03/22/17 03:30 Pulse Ox 99 03/22/17 03:30 - Labs Result Diagrams: 03/22/17 01:30 03/22/17 01:30 Labs: Laboratory Results - last 24 hr 03/22/17 03/22/17 03/22/17 01:30 01:30 01:30 WBC 6.4 RBC 5.75 Hgb 11.1 L Hct 35.3 L MCV 61.4 L MCH 19.3 L MCHC 31.4 RDW 15.6 H Plt Count 303 Gran % 54.5 Lymph % (Auto) 32.8 [place] % (Auto) 8.1 H Eos % (Auto) 4.0 Baso % (Auto) 0.6 Gran # 3.50 Lymph # 2.1 [place] # 0.5 Eos # 0.3 Baso # 0.04 PT 12.1 INR 1.05 APTT 26.8 Sodium 140 Potassium 3.6 Chloride 100 Carbon Dioxide 20 L Anion Gap 23 H BUN 19 Creatinine 0.9 Est GFR ( Amer) > 60 Est GFR (Non-Af Amer) 60 Random Glucose 141 H Calcium 9.7 Total Bilirubin 0.4 AST 41 H D ALT 45 Alkaline Phosphatase 117 Troponin I < 0.01 D Total Protein 7.0 Albumin 4.0 Globulin 3.0 Albumin/Globulin Ratio 1.3 Triglycerides 174 H Cholesterol 201 H LDL Cholesterol Direct 109 HDL Cholesterol 53 Blood Type Antibody Screen BBK History Checked 03/22/17 01:31 WBC RBC Hgb Hct MCV MCH MCHC RDW Plt Count Gran % Lymph % (Auto) [place] % (Auto) Eos % (Auto) Baso % (Auto) Gran # Lymph # [place] # Eos # Baso # PT INR APTT Sodium Potassium Chloride Carbon Dioxide Anion Gap BUN Creatinine Est GFR ( Amer) Est GFR (Non-Af Amer) Random Glucose Calcium Total Bilirubin AST ALT Alkaline Phosphatase Troponin I Total Protein Albumin Globulin Albumin/Globulin Ratio Triglycerides Cholesterol LDL Cholesterol Direct HDL Cholesterol Blood Type O POSITIVE Antibody Screen Negative BBK History Checked Patient has bt - EKG Data EKG Interpreted by: Myself EKG shows normal: Sinus rhythm Rate: Tachycardia Assessment & Plan - Assessment and Plan (Free Text) Assessment: Patient is an 81 y/o with PMHx of hld, multiple TIAs, and CVA, recent discharge 03/12/16 s/p another episode of TIA presenting with left sided upper and lower extremities weakness, and AMS. En route, EMS activated code stroke. CT head revealed chronic microvascular changes with chronic focal infarct in right parietal white matter. NIHSS of 20. Neurologist was contacted, consent was obtained from the family and patient was giving TPA. ICU is consulted for ICU admission post TPA. Plan: Neuro: AMS and left upper and lower extremities weakness likely due to new onset CVA, with NIHSS scale of 20. R/o seizures Neuro consulted s/p TPA Neuro checks q2 hr fall precaution, seizure precaution hob above 30 degrees Will obtain brain MRI once stable EEG ordered PT/OT, Speech and NPO pending speech and swallow eval Cardio: stable Maintain BP below 180/105 recent echo with normal LVEF ID: Will monitor for sepsis. Recent UTI, repeat ua Endo: maintain euglycemia GI: NPO. ppi for gi prophylaxis Heme: h/o chronic anemia, h/h stable, continue to monitor. Renal: Stable, will monitor for now. DVT prophylaxis: no chemical dvt prophylaxis due to tpa. SCD for dvt prophylaxis. Patient seen, examined and case discussed with Dr Cueva. - Date & Time Date: 03/22/17 Time: 05:40 <Anay LINDSEY,Matthieu - Last Filed: 03/22/17 07:45> Meds - Medications Medications: Current Medications Atorvastatin Calcium (Lipitor) 40 mg PO DIN PHIL Magnesium Sulfate 2 gm/ Sodium (Chloride) 104 mls @ 102 mls/hr IVPB ONCE ONE Stop: 03/22/17 07:49 Labetalol HCl (Trandate) 10 mg IVP Q6 PRN PRN Reason: Systolic Blood Pressure Pantoprazole Sodium (Protonix Inj) 40 mg IVP DAILY PHIL Results - Vital Signs Recent Vital Signs: Last Vital Signs Temp 98.9 F 03/22/17 05:38 Pulse 83 03/22/17 06:50 Resp 26 H 03/22/17 06:50 BP 142/81 03/22/17 06:45 Pulse Ox 95 03/22/17 06:50 - Labs Result Diagrams: 03/22/17 01:30 03/22/17 01:30 Attending/Attestation - Attestation I have personally seen and examined this patient.: Yes I have fully participated in the care of the patient.: Yes I have reviewed all pertinent clinical information: Yes Notes (Text): -I agree with the above H&P completed by the resident physician with the following additions and/or changes: -The patient is an 81 year old woman with a history of neuralgia, multiple CVA' s (with residual intermittent right-sided hemipariesis) and HL presenting with acute onset of left-sided weakness and severe scalp pain. She received t-PA in the ED and will now be admitted to the ICU for close monitoring and hourly neuro checks. Her blood pressures have been ranging around the 140's/90's. However, will be place an order for PRN IV Labetolol to ensure SBP<180 and DBP< 105. Also, fall and aspiration precautions and HOB>30 degrees have been ordered. A repeat CT-head will be done in the AM to ensure she has not developed an acute bleed since receiving t-PA. Neurology has been consulted.
[2017-03-22] MEDS ORDERED: Labetalol 5 mg/ml Inj 20ML IVP PRN (04:27)
[2017-03-22] MEDS ORDERED: Magnesium Sulfate 2 GM in Sodium Chloride 0.9% 100 ML IVPB ONE (06:48)
--- NOTE | 2017-03-22 09:49 | CT ---
CT head without IV contrast History: Follow-up ischemia Technique: Axial computed tomography images were obtained through the head/brain without intravenous contrast. This CT exam was performed using 1 or more of the following dose reduction techniques: Automated exposure control, adjustment of the MAA and/or kV according to patient size, and/or use of iterative reconstruction technique. Radiation dose: Total exam DLP = 1725.24 mGy-cm. Comparison: CT head code stroke performed 03/22/17 at 113 hour Findings: Nearly nondiagnostic study due to extensive patient motion throughout the examination despite multiple attempts. Encephalomalacia re- identified in the right parietal lobe. Scattered periventricular and subcortical white matter hypodensities, which are nonspecific, but often seen with chronic microvascular ischemic disease. Intracranial atherosclerosis. No hydronephrosis. No obvious displaced calvarial abnormality. No obvious abnormality involving the paranasal sinuses, mastoid air cells, and both orbits. Impression: Nearly nondiagnostic study due to extensive patient motion throughout the examination despite multiple attempts at imaging. If indicated, recommend repeat study at which time the patient is able to comply with instruction. Re-identified encephalomalacia, right parietal lobe. Nonspecific white matter changes.
--- NOTE | 2017-03-22 09:51 | RAD ---
HISTORY: cva COMPARISON: Chest x-ray performed 03/11/17 TECHNIQUE: Chest, one view. FINDINGS: LUNGS: Persistent but decreased right basilar infiltrate. Please note that chest x-ray has limited sensitivity for the detection of pulmonary masses. PLEURA: No significant pleural effusion identified. No definite pneumothorax . CARDIOVASCULAR: Bilateral hilar prominence. Mild cardiomegaly. OSSEOUS STRUCTURES: Degenerative changes. VISUALIZED UPPER ABDOMEN: Mild elevation of the right hemidiaphragm. OTHER FINDINGS: None. IMPRESSION: Persistent but decreased infiltrate at the right lung base. Bilateral hilar prominence. Mild cardiomegaly.
--- NOTE | 2017-03-22 10:28 | CP.PCM.PN ---
<Shital Dutton - Last Filed: 03/22/17 11:08> Subjective - Date & Time of Evaluation Date of Evaluation: 03/22/17 Time of Evaluation: 10:25 - Subjective Subjective: ICU Progress Note for Anna Ba PGY2 Patient seen and examined at bedside. As per nursing staff, there were no acute overnight events. Patient reports having headache. She states she is in pain and will not answer questioning. She follows some commands. 12 point ROS is limited. Objective - Vital Signs/Intake and Output Vital Signs (last 24 hours): Temp Pulse Resp BP Pulse Ox 78.3 F L 83 26 H 142/81 95 03/22/17 05:38 03/22/17 06:50 03/22/17 06:50 03/22/17 06:45 03/22/17 06:50 Intake and Output: 03/22/17 03/22/17 06:59 18:59 Intake Total 0 Output Total 0 Balance 0 - Medications Medications: Current Medications Acetaminophen (Tylenol 325mg Tab) 650 mg PO Q4H PRN PRN Reason: Pain, Mild (1-3) Aspirin (Aspirin Chewable) 81 mg PO DAILY [facility] Atorvastatin Calcium (Lipitor) 40 mg PO DIN [facility] Sodium Chloride (Sodium Chloride 0.9%) 1,000 mls @ 100 mls/hr IV .Q10H [facility] Labetalol HCl (Trandate) 10 mg IVP Q6 PRN PRN Reason: Systolic Blood Pressure Pantoprazole Sodium (Protonix Inj) 40 mg IVP DAILY [facility] Last Admin: 03/22/17 10:07 Dose: 40 mg - Labs Labs: PT 12.1 SECONDS (9.4-12.5) 03/22/17 01:30 INR 1.05 (0.93-1.08) 03/22/17 01:30 APTT 26.8 Seconds (25.1-36.5) 03/22/17 01:30 - Constitutional Appears: No Acute Distress - Head Exam Head Exam: ATRAUMATIC, NORMAL INSPECTION, NORMOCEPHALIC - Eye Exam Eye Exam: Normal appearance, PERRL - ENT Exam ENT Exam: Mucous Membranes Moist - Neck Exam Neck Exam: Full ROM - Respiratory Exam Respiratory Exam: Clear to Ausculation Bilateral, NORMAL BREATHING PATTERN. absent: Rales, Rhonchi, Wheezes - Cardiovascular Exam Cardiovascular Exam: REGULAR RHYTHM, +S1, +S2. absent: Gallop, Rubs, Murmur - GI/Abdominal Exam GI & Abdominal Exam: Soft, Normal Bowel Sounds. absent: Rigid, Tenderness, Mass , Rebound - Extremities Exam Extremities Exam: Normal Inspection. absent: Calf Tenderness, Pedal Edema - Neurological Exam Neurological Exam: Awake Neuro motor strength exam: Left Upper Extremity: 3, Right Upper Extremity: 2/1, Left Lower Extremity: 2/1, Right Lower Extremity: 2/1 Additional comments: Neuro exam somewhat limited due to patient noncompliance: Patient will not let me examine her face and will not follow some commands R arm contracted, decreased strength, L arm contracted, strength 3/5. Lower extremities contracted Withdraws to pain in all 4 extremities + babinski on R - Skin Skin Exam: Dry, Warm Assessment and Plan - Assessment and Plan (Free Text) Assessment: This is an 81yo F with PMH of HLD, CVA, multiple TIA with recent TIA on 03/12/17 who presents with weakness on L upper and lower extremities. Code stroke was called. Head CT showed chronic microvascular changes with chronic focal infarct in right parietal white matter. Patient was given tPA in ED and transferred to ICU. Plan: Neuro: AMS and LUE and LLE weakness can be secondary to CVA s/p TPA Repeat head CT this am had a lot of artifact from movement- but showed R encephalomalacia which is stable Neuro consulted- ordered MRI/MRA head/neck Continue Seizure precaution, aspiration precaution Neuro checks Speech/Swallow, physical therapy eval Fall precaution EEG pending ASA, Lipitor once swallow eval passed Cardio: Hemodynamically at this time Permissive HTN, Maintain SBP around 160s for 24hrs Maintain MAP >65 Echo showed normal LV function of 71% NS@100 Resp: Patient comfortable on room air Maintain SPO2>92% Head of bed elevated, aspiration precaution GI: NPO pending speech/swallow eval Heme: Hgb stable- no sign of bleed on recent CT Neprho: Continue to monitor electrolytes and replace as needed ID: Afebrile, no leukocytosis pt had UTI on 03/11- will repeat U/A Endo: Maintain euglycemia (140s-180s) GI ppx: Protonix DVT ppx: SCDs Patient seen, examined and case discussed with attending Anna Dutton PGY2 <Juana Parrariy - Last Filed: 03/22/17 12:33> Objective - Vital Signs/Intake and Output Vital Signs (last 24 hours): Temp Pulse Resp BP Pulse Ox 78.3 F L 81 26 H 142/81 95 03/22/17 05:38 03/22/17 10:00 03/22/17 06:50 03/22/17 06:45 03/22/17 06:50 Intake and Output: 03/22/17 03/22/17 06:59 18:59 Intake Total 0 Output Total 0 Balance 0 - Medications Medications: Current Medications Acetaminophen (Tylenol 325mg Tab) 650 mg PO Q4H PRN PRN Reason: Pain, Mild (1-3) Sodium Chloride (Sodium Chloride 0.9%) 1,000 mls @ 100 mls/hr IV .Q10H [facility] Last Admin: 03/22/17 10:31 Dose: 100 mls/hr Labetalol HCl (Trandate) 10 mg IVP Q6 PRN PRN Reason: Systolic Blood Pressure Pantoprazole Sodium (Protonix Inj) 40 mg IVP DAILY [facility] Last Admin: 03/22/17 10:07 Dose: 40 mg - Labs Labs: PT 12.1 SECONDS (9.4-12.5) 03/22/17 01:30 INR 1.05 (0.93-1.08) 03/22/17 01:30 APTT 26.8 Seconds (25.1-36.5) 03/22/17 01:30 Assessment and Plan - Assessment and Plan (Free Text) Plan: Patient seen and examined, on rounds with resident, agree with note with following additions/exceptions: 81yo F with PMH of HLD, CVA, multiple TIA with recent TIA on 03/12/17 presented weakness on L upper and lower extremities, CT head showed chronic microvascular changes with chronic focal infarct in right parietal white matter, patient was given tPA. Repeat CT head this morning, with motion artifact. MRI/MRA pending. Acute CVA HTN HLD Recommend: - supp o2 as needed - follow up cultures - permissive HTN - IVF - ECHO - MRI/MRA - hold ASA for 24hr - NPO - speech swallow eval - Neuro checks - follow up neurology - Lipitor - check HgbA1C, Lipid Panel - GI ppx, DVT ppx - monitor in MICU
--- NOTE | 2017-03-22 10:29 | CARD ---
APPROVED REPORT EKG Measurement Heart [id number] <Conclusion> Sinus tachycardia Possible Septal MD, age unknown STTW changes c/w ischemia, new Q in lll
[2017-03-22] MEDS: Sodium Chloride 0.9% 1,000 ML IV SCH (10:31)
[2017-03-22] MEDS ORDERED: Sodium Chloride 0.9% 1,000 ML IV STA (16:04)
[2017-03-22] MEDS ORDERED: levETIRAcetam 500mg IVPB 500 MG/100 ML BAG IV SCH (19:15)
[2017-03-22] MEDS ORDERED: Valproate 500 MG in Sodium Chloride 0.9% 100 ML IVPB ONE (19:52)
--- NOTE | 2017-03-22 20:07 | CP.PCM.CON ---
History of Present Illness - History of Present Illness History of Present Illness: Mrs. Zavala is an 81-year-old woman with a past medical history of hypertension, dyslipidemia, neuropathy, depression and a previous ischemic stroke (two years ago), who was recently discharged for TIA, and UTI about 2 weeks ago, and was doing well at home. Last night, at around midnight, the patient went up to bed and was heard by her daughter moaning and calling for her daughter. She went up to find her mother with left sided weakness and confusion. Shortly after, the patient began to have convulsions. EMS arrived and noted that she was paralyzed on the left side and had a seizure. She was brought to the ED, where her initial NIHSS was 20. She was within the 3 hour time window for IV tPA, and had no absolute contraindications, and was given the infusion after a CT scan of the head did not show any acute changes. A repeat CT scan of the head later this morning did not show bleed. The patient started to move her left side and is currently non-focal and passed the swallow evaluation. The patient followed simple commands, but is still confused. NIHSS = 4 Review of Systems - Review of Systems All systems: reviewed and no additional remarkable complaints except Past Patient History - Infectious Disease Hx of Infectious Diseases: None - Past Social History Smoking Status: Former Smoker - CARDIAC Hx Cardiac Disorders: Yes - PULMONARY Hx Respiratory Disorders: Yes (used to smoke cigarettes.Quit) - NEUROLOGICAL Hx Neurological Disorder: Yes Hx Transient Ischemic Attacks (TIA): Yes - HEENT Hx HEENT Problems: Yes (tonsillectomy) Hx Deafness: Yes (right ear.) - RENAL Hx Chronic Kidney Disease: No - ENDOCRINE/METABOLIC Hx Endocrine Disorders: No - HEMATOLOGICAL/ONCOLOGICAL Hx Blood Disorders: No - INTEGUMENTARY Hx Dermatological Problems: Yes Other/Comment: Bilateral le redness,cellulitis,flushed painful skin. - MUSCULOSKELETAL/RHEUMATOLOGICAL Hx Musculoskeletal Disorders: Yes Hx Arthritis: Yes (Hands) Hx Falls: Yes - GASTROINTESTINAL Hx Gastrointestinal Disorders: No - GENITOURINARY/GYNECOLOGICAL Hx Genitourinary Disorders: Yes Hx Urinary Tract Infection: Yes - PSYCHIATRIC Hx Psychophysiologic Disorder: No Hx Depression: No Hx Emotional Abuse: No Hx Physical Abuse: No Hx Substance Use: No - SURGICAL HISTORY Hx Tonsillectomy: Yes - ANESTHESIA Hx Anesthesia: Yes Hx Anesthesia Reactions: No Hx Malignant Hyperthermia: No Meds Allergies/Adverse Reactions: Allergies Allergy/AdvReac Type Severity Reaction Status Date / Time codeine Allergy HEADACHE Verified 03/22/17 01:09 novacaine Allergy Severe Chest pain Uncoded 03/22/17 01:09 - Medications Medications: Current Medications Acetaminophen (Tylenol 325mg Tab) 650 mg PO Q4H PRN PRN Reason: Pain, Mild (1-3) Aspirin (Aspirin Chewable) 81 mg PO DAILY [facility] Last Admin: 03/22/17 17:15 Dose: 81 mg Atorvastatin Calcium (Lipitor) 40 mg PO DIN [facility] Last Admin: 03/22/17 17:15 Dose: 40 mg Sodium Chloride (Sodium Chloride 0.9%) 1,000 mls @ 100 mls/hr IV .Q10H [facility] Last Admin: 03/22/17 10:31 Dose: 100 mls/hr Valproate Sodium 500 mg/ (Sodium Chloride) 105 mls @ 100 mls/hr IVPB ONCE ONE Stop: 03/22/17 20:54 Labetalol HCl (Trandate) 10 mg IVP Q6 PRN PRN Reason: Systolic Blood Pressure Oxybutynin Chloride (Ditropan Tab) 5 mg PO ONCE ONE Stop: 03/23/17 19:53 Pantoprazole Sodium (Protonix Inj) 40 mg IVP DAILY [facility] Last Admin: 03/22/17 10:07 Dose: 40 mg Physical Exam - Constitutional Appears: Cachectic - Head Exam Head Exam: ATRAUMATIC, NORMAL INSPECTION, NORMOCEPHALIC - Eye Exam Eye Exam: EOMI, Normal appearance, PERRL - Neck Exam Neck exam: Positive for: Normal Inspection - Respiratory Exam Respiratory Exam: Clear to Auscultation Bilateral, NORMAL BREATHING PATTERN - Cardiovascular Exam Cardiovascular Exam: REGULAR RHYTHM, +S1, +S2 - GI/Abdominal Exam GI & Abdominal Exam: Normal Bowel Sounds, Soft. absent: Tenderness - Rectal Exam Rectal Exam: Deferred - Extremities Exam Extremities exam: Positive for: normal inspection - Neurological Exam Neurological exam: Alert, Altered, CN II-XII Intact Additional comments: Confused and did not answer questions appropriately. Moves all extremities equally. Sensation is intact throughout. Follows simple commands. Brisk reflexes on the left C5/6 and L4/5. Plantar response is upgoing. NIHSS= 4 Results - Vital Signs Recent Vital Signs: Last Vital Signs Temp 78.3 F L 03/22/17 05:38 Pulse 81 03/22/17 18:00 Resp 26 H 03/22/17 06:50 BP 142/81 03/22/17 06:45 Pulse Ox 95 03/22/17 06:50 - Labs Result Diagrams: 03/22/17 01:30 03/22/17 01:30 Assessment & Plan (1) Seizure Assessment and Plan: Will give 500 mg of Depakote tonight for agitation and headache, and start carbamazepine 200 mg BID for neuropathy, seizure, and mood instability. EEG tomorrow and MRI of the brain will be done tomorrow for further evaluation. Status: Acute (2) Cerebral vascular accident Assessment and Plan: The patient is s/p IV tPA, please follow the post-tPA protocol for BP parameters , precautions and medication restrictions. I recommend the followin. ICU admission and telemetry with Q1 hour neuro-checks 2. MRI of the brain and MRA of the head/neck without contrast 3. Echocardiogram with bubble study 4. EEG awake and drowsy for 1 hour 5. Hold aspirin or anticoagulation for 24 hours 6. SCD for DVP Px 7. PT/OT eval and treat 8. Lipid panel 9. HbA1c, B12, folate, TSH, vitamin D levels 10. Case management consult Thank you. Status: Acute Priority: High
[2017-03-23] MEDS: Sodium Chloride 0.9% 1,000 ML IV SCH ×3 (06:00→20:30)
[2017-03-23 06:11] LABS: URINE BILIRUBIN NEGATIVE (NEGATIVE); URINE BLOOD NEGATIVE (NEGATIVE); URINE GLUCOSE (UA) NEGATIVE (NEGATIVE); URINE LEUKOCYTE ESTERASE NEGATIVE Leu/uL (NEGATIVE); URINE NITRATE NEGATIVE (NEGATIVE); URINE PROTEIN NEGATIVE mg/dL (<30 mg/dL); URINE UROBILINOGEN 0.2 E.U./dL (<1 E.U./dL)
[2017-03-23 06:14] LABS: URINE APPEARANCE CLEAR (CLEAR); URINE COLOR YELLOW (YELLOW)
--- NOTE | 2017-03-23 06:59 | CP.PCM.PN ---
Subjective - Date & Time of Evaluation Date of Evaluation: 03/23/17 Time of Evaluation: 06:55 - Subjective Subjective: Mas. Zavala was seen and examined at the bedside in ICU. She is alert, but episodes of confusion and agitation. She is able to participate with assessment. She denies any headache, blurred vision, nausea, or vomiting. She has visual hallucination especially in her left hand. She is able to follows simple commands such as field accommodation, finger to nose, and strength test. She has a right wrist restraint for patient safety. According to the staff, she did not able to sleep the whole night. The repeat CT scan yesterday did show a artifact or motion. Objective - Vital Signs/Intake and Output Vital Signs (last 24 hours): Temp Pulse Resp BP Pulse Ox 98 F 80 29 H 156/66 H 98 03/23/17 03:46 03/23/17 03:40 03/23/17 03:40 03/23/17 03:00 03/23/17 03:40 Intake and Output: 03/22/17 03/23/17 18:59 06:59 Intake Total 1330 700 Output Total 50 2400 Balance 1280 -1700 - Medications Medications: Current Medications Acetaminophen (Tylenol 325mg Tab) 650 mg PO Q4H PRN PRN Reason: Pain, Mild (1-3) Aspirin (Aspirin Chewable) 81 mg PO DAILY [facility] Last Admin: 03/22/17 17:15 Dose: 81 mg Atorvastatin Calcium (Lipitor) 40 mg PO DIN [facility] Last Admin: 03/22/17 17:15 Dose: 40 mg Haloperidol (Haldol) 0.5 mg PO Q12 PRN; Protocol PRN Reason: Agitation Sodium Chloride (Sodium Chloride 0.9%) 1,000 mls @ 100 mls/hr IV .Q10H [facility] Last Admin: 03/22/17 10:31 Dose: 100 mls/hr Labetalol HCl (Trandate) 10 mg IVP Q6 PRN PRN Reason: Systolic Blood Pressure Pantoprazole Sodium (Protonix Inj) 40 mg IVP DAILY [facility] Last Admin: 03/22/17 10:07 Dose: 40 mg - Labs Labs: PT 12.1 SECONDS (9.4-12.5) 03/22/17 01:30 INR 1.05 (0.93-1.08) 03/22/17 01:30 APTT 26.8 Seconds (25.1-36.5) 03/22/17 01:30 - Constitutional Appears: No Acute Distress - Head Exam Head Exam: NORMAL INSPECTION - Neurological Exam Neurological Exam: Alert, Awake Neuro motor strength exam: Left Upper Extremity: 3, Right Upper Extremity: 5, Left Lower Extremity: 5, Right Lower Extremity: 5 Additional comments: She has alert with episode of confusion and agitation, but able to follow simple commands. Assessment and Plan (1) Cerebral vascular accident Assessment & Plan: Case discussed with Dr. Guerra, continue all current medical regimen. Recommend haldol 0.5 mg IV q 12 PRN for agitation, needs 1:1 observational sitter for patient safety. Repeat CT of the head without contrast this morning. Follow up MRI of the brain and echocardiogram with bubble study. Status: Acute
[2017-03-23 07:43] LABS: BASO # 0.02 K/mm3 (0.0-2.0); BASO % 0.2 % (0.0-3.0); EOS % 0.4 % (1.5-5.0); GRAN # 7.24 (1.4-6.5); GRAN % 73.8 % (50.0-68.0); HEMOGLOBIN 9.5 g/dL (12.0-16.0); LYMPH # 1.7 (1.2-3.4); LYMPH % 17.6 % (22.0-35.0); MEAN CELL VOLUME 60.2 fl (80.0-105.0); MEAN CORPUSCULAR HEMOGLOBIN 18.7 pg (25.0-35.0); MONO # 0.8 (0.1-0.6); PLATELET COUNT 242 10^3/uL (120.0-450.0); RBC 5.08 10^6/uL (3.5-6.1); RED CELL DISTRIBUTION WIDTH 15.4 % (11.5-14.5); WHITE BLOOD COUNT 9.8 10^3/ul (4.5-11.0)
[2017-03-23 08:14] LABS: INR 1.1 (0.93-1.08); PARTIAL THROMBOPLASTIN TIME 28.9 Seconds (25.1-36.5); PROTHROMBIN TIME 12.7 SECONDS (9.4-12.5)
[2017-03-23 08:24] LABS: ALB/GLOB RATIO 1.2 (1.1-1.8); ALBUMIN 3.3 g/dL (3.0-4.8); ALT/SGPT 34 U/L (7-56); AST/SGOT 36 U/L (14-36); BLOOD UREA NITROGEN 21 mg/dL (7-21); CALCIUM 8.7 mg/dL (8.4-10.5); GFR AFRICAN-AMERICAN > 60; GFR NON-AFRICAN AMERICAN > 60
--- NOTE | 2017-03-23 09:22 | CT ---
PROCEDURE: CT HEAD WITHOUT CONTRAST. HISTORY: stroke COMPARISON: 03/22/2017 TECHNIQUE: Axial computed tomography images were obtained through the head/brain without intravenous contrast. Radiation dose: Total exam DLP = 809 mGy-cm. This CT exam was performed using one or more of the following dose reduction techniques: Automated exposure control, adjustment of the mA and/or kV according to patient size, and/or use of iterative reconstruction technique. FINDINGS: HEMORRHAGE: No intracranial hemorrhage. BRAIN: No mass effect or edema. Chronic encephalomalacia is seen in the right parietal lobe VENTRICLES: Unremarkable. No hydrocephalus. CALVARIUM: Unremarkable. PARANASAL SINUSES: Unremarkable as visualized. No significant inflammatory changes. MASTOID AIR CELLS: Unremarkable as visualized. No inflammatory changes. OTHER FINDINGS: None. 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 No acute findings
--- NOTE | 2017-03-23 09:33 | CT ---
PROCEDURE: CT Angiography of the neck with contrast HISTORY: ischemic stroke COMPARISON: None available. TECHNIQUE: Contiguous axial images of the neck were obtained from the level of the skull-base to the superior mediastinum in the arteriographic phase of enhancement. Coronal and sagittal reformats or also generated. IV contrast dose: 150 cc of Omni 350 Radiation Dose - DLP: 227 mGy-cm This CT exam was performed using one or more of the following dose reduction techniques: Automated exposure control, adjustment of the mA and/or kV according to patient size, and/or use of iterative reconstruction technique. FINDINGS: RIGHT CAROTID ARTERIES: Common Carotid Artery: Normal. Carotid Bifurcation: Normal. Internal Carotid Artery:Normal. External Carotid Artery (proximal branches): Normal. LEFT CAROTID ARTERIES: Common Carotid Artery: Normal. Carotid Bifurcation: Normal. Internal Carotid Artery:Normal. External Carotid Artery (proximal branches): Normal. VERTEBRAL ARTERIES: Right Vertebral Artery: Normal. Left Vertebral Artery: Normal. OTHER FINDINGS: None. IMPRESSION: Normal CT Angiography of the neck. CT Angiography of the Brain. HISTORY: ischemic stroke COMPARISON: None available. TECHNIQUE: CT angiography of the intracranial arteries was performed. Coronal and sagittal maximum intensity projection reformated images were generated. This CT exam was performed using one or more of the following dose reduction techniques: Automated exposure control, adjustment of the mA and/or kV according to patient size, and/or use of iterative reconstruction technique. FINDINGS: INTERNAL CEREBRAL ARTERIES: Unremarkable. The skull base, petrous, cavernous and supraclinoid segments are bilaterally widely patent. ANTERIOR CEREBRAL ARTERIES: Unremarkable. A1 and A2 segments are widely patent. Smaller distal branches unremarkable, as visualized. MIDDLE CEREBRAL ARTERIES: Unremarkable. M1 and M2 segments are widely patent. Perisylvian branches grossly symmetric. POSTERIOR CIRCULATION: Basilar Artery: Unremarkable. Distal Vertebral Arteries: Unremarkable. Posterior Cerebral Arteries: Unremarkable. Posterior Inferior Cerebellar Arteries: Unremarkable. ANEURYSM/ VASCULAR MALFORMATIONS: None. OTHER FINDINGS: None. IMPRESSION: Unremarkable CT Angiography of the Brain.
--- NOTE | 2017-03-23 10:17 | CP.CCUPN ---
<Geo Love - Last Filed: 03/23/17 10:18> CCU Subjective - Physician Review Subjective (Free Text): Critical Care- Dr. Parra Patient seen and examined at bedside this AM. No acute events overnight. Nursing notes reviewed. Currently moves all [address] this AM shows no acute hemorrhage or changes. ASA restarted. On heart healthy diet. Resting comfortably at this time. one 1-1. Hemodynamically stable CCU Objective - Vital Signs / Intake & Output Intake and Output (Last 8hrs): Intake & Output 03/22/17 03/23/17 03/23/17 22:59 06:59 14:59 Intake Total 1330 700 Output Total 50 2400 Balance 1280 -1700 Intake: IV 1210 700 Left Antecubital 10 Right Forearm 1200 700 Oral 120 0 Output: Urine 50 2400 Urethral (Young) 50 2400 Other: # Bowel Movements 0 0 - Physical Exam Head: Positive for: Atraumatic, Normocephalic Pupils: Positive for: PERRL Extroacular Muscles: Positive for: Other (Left-sided deviation, fixed gaze) Conjunctiva: Positive for: Normal Mouth: Positive for: Moist Mucous Membranes Respiratory/Chest: Positive for: Clear to Auscultation, Good Air Exchange. Negative for: Respiratory Distress, Accessory Muscle Use Cardiovascular: Positive for: Regular Rate and Rhythm, Normal S1, S2. Negative for: Murmurs Abdomen: Positive for: Normal Bowel Sounds. Negative for: Tenderness, Distention, Peritoneal Signs Upper Extremity: Positive for: Capillary Refill < 2s, Other (Flaccid left upper extremity). Negative for: Cyanosis, Edema, Tenderness, Swelling, Erythema Lower Extremity: Negative for: Edema Skin: Positive for: Warm, Dry, Normal Color. Negative for: Rashes Psychiatric: Positive for: Lethargic - Medications Active Medications: Active Medications Generic Name Dose Route Start Last Admin Trade Name Freq PRN Reason Stop Dose Admin Acetaminophen 650 mg 03/22/17 08:17 Tylenol 325mg Tab PO Q4H PRN Pain, Mild (1-3) Aspirin 81 mg 03/22/17 13:15 03/23/17 10:13 Aspirin Chewable PO 81 mg DAILY PHIL Administration Atorvastatin Calcium 40 mg 03/22/17 17:00 03/22/17 17:15 Lipitor PO 40 mg DIN PHIL Administration Carbamazepine 200 mg 03/23/17 10:00 Tegretol PO BID PHIL Protocol Sodium Chloride 1,000 mls @ 100 mls/hr 03/22/17 10:30 03/23/17 06:00 Sodium Chloride 0.9% IV 100 mls/hr .Q10H PHIL Administration Labetalol HCl 10 mg 03/22/17 04:27 Trandate IVP Q6 PRN Systolic Blood Pressure Pantoprazole Sodium 40 mg 03/22/17 10:00 03/23/17 10:13 Protonix Inj IVP 40 mg DAILY PHIL Administration - Patient Studies Lab Studies: Lab Studies 03/23/17 03/23/17 03/23/17 Range/Units 09:00 07:33 07:00 WBC (4.5-11.0) 10^3/ul RBC (3.5-6.1) 10^6/uL Hgb (12.0-16.0) g/dL Hct (36.0-48.0) % MCV (80.0-105.0) fl MCH (25.0-35.0) pg MCHC (31.0-37.0) g/dl RDW (11.5-14.5) % Plt Count (120.0-450.0) 10^3/uL Gran % (50.0-68.0) % Lymph % (Auto) (22.0-35.0) % [place] % (Auto) (1.0-6.0) % Eos % (Auto) (1.5-5.0) % Baso % (Auto) (0.0-3.0) % Gran # (1.4-6.5) Lymph # (1.2-3.4) [place] # (0.1-0.6) Eos # (0.0-0.7) Baso # (0.0-2.0) K/mm3 PT (9.4-12.5) SECONDS INR (0.93-1.08) APTT (25.1-36.5) Seconds Sodium 139 (132-148) mmol/L Potassium 4.0 (3.6-5.0) mmol/L Chloride 106 (98-107) mmol/L Carbon Dioxide 24 (21-33) mmol/L Anion Gap 13 (10-20) BUN 21 (7-21) mg/dL Creatinine 0.8 (0.7-1.2) mg/dl Est GFR ( Amer) > 60 Est GFR (Non-Af Amer) > 60 POC Glucose (mg/dL) 98 (65-110) mg/dL Random Glucose 94 (70-110) mg/dL Calcium 8.7 (8.4-10.5) mg/dL Total Bilirubin 0.5 (0.2-1.3) mg/dL AST 36 (14-36) U/L ALT 34 (7-56) U/L Alkaline Phosphatase 89 (38-126) U/L Total Protein 6.0 (5.8-8.3) g/dL Albumin 3.3 (3.0-4.8) g/dL Globulin 2.7 gm/dL Albumin/Globulin Ratio 1.2 (1.1-1.8) Urine Color (YELLOW) Urine Appearance (CLEAR) Urine pH (4.7-8.0) Ur Specific [place] (1.005-1.035) Urine Protein (<30 mg/dL) mg/dL Urine Glucose (UA) (NEGATIVE) mg/dL Urine Ketones (NEGATIVE) mg/dL Urine Blood (NEGATIVE) Urine Nitrate (NEGATIVE) Urine Bilirubin (NEGATIVE) Urine Urobilinogen (<1 E.U./dL) E.U./dL Ur Leukocyte Esterase (NEGATIVE) [place]/uL Carbamazepine < 3 L (4.0-10.0) ug/mL 03/23/17 03/23/17 03/23/17 Range/Units 07:00 07:00 04:00 WBC 9.8 D (4.5-11.0) 10^3/ul RBC 5.08 (3.5-6.1) 10^6/uL Hgb 9.5 L (12.0-16.0) g/dL Hct 30.6 L (36.0-48.0) % MCV 60.2 L (80.0-105.0) fl MCH 18.7 L (25.0-35.0) pg MCHC 31.0 (31.0-37.0) g/dl RDW 15.4 H (11.5-14.5) % Plt Count 242 (120.0-450.0) 10^3/uL Gran % 73.8 H (50.0-68.0) % Lymph % (Auto) 17.6 L (22.0-35.0) % [place] % (Auto) 8.0 H (1.0-6.0) % Eos % (Auto) 0.4 L (1.5-5.0) % Baso % (Auto) 0.2 (0.0-3.0) % Gran # 7.24 H (1.4-6.5) Lymph # 1.7 (1.2-3.4) [place] # 0.8 H (0.1-0.6) Eos # 0.0 (0.0-0.7) Baso # 0.02 (0.0-2.0) K/mm3 PT 12.7 H (9.4-12.5) SECONDS INR 1.10 H (0.93-1.08) APTT 28.9 (25.1-36.5) Seconds Sodium (132-148) mmol/L Potassium (3.6-5.0) mmol/L Chloride (98-107) mmol/L Carbon Dioxide (21-33) mmol/L Anion Gap (10-20) BUN (7-21) mg/dL Creatinine (0.7-1.2) mg/dl Est GFR ( Amer) Est GFR (Non-Af Amer) POC Glucose (mg/dL) (65-110) mg/dL Random Glucose (70-110) mg/dL Calcium (8.4-10.5) mg/dL Total Bilirubin (0.2-1.3) mg/dL AST (14-36) U/L ALT (7-56) U/L Alkaline Phosphatase (38-126) U/L Total Protein (5.8-8.3) g/dL Albumin (3.0-4.8) g/dL Globulin gm/dL Albumin/Globulin Ratio (1.1-1.8) Urine Color Yellow (YELLOW) Urine Appearance Clear (CLEAR) Urine pH 6.0 (4.7-8.0) Ur Specific [place] 1.020 (1.005-1.035) Urine Protein Negative (<30 mg/dL) mg/dL Urine Glucose (UA) Negative (NEGATIVE) mg/dL Urine Ketones Negative (NEGATIVE) mg/dL Urine Blood Negative (NEGATIVE) Urine Nitrate Negative (NEGATIVE) Urine Bilirubin Negative (NEGATIVE) Urine Urobilinogen 0.2 (<1 E.U./dL) E.U./dL Ur Leukocyte Esterase Negative (NEGATIVE) [place]/uL Carbamazepine (4.0-10.0) ug/mL Laboratory Results - last 24 hr 03/23/17 03/23/17 03/23/17 04:00 07:00 07:00 WBC 9.8 D RBC 5.08 Hgb 9.5 L Hct 30.6 L MCV 60.2 L MCH 18.7 L MCHC 31.0 RDW 15.4 H Plt Count 242 Gran % 73.8 H Lymph % (Auto) 17.6 L [place] % (Auto) 8.0 H Eos % (Auto) 0.4 L Baso % (Auto) 0.2 Gran # 7.24 H Lymph # 1.7 [place] # 0.8 H Eos # 0.0 Baso # 0.02 PT 12.7 H INR 1.10 H APTT 28.9 Sodium Potassium Chloride Carbon Dioxide Anion Gap BUN Creatinine Est GFR ( Amer) Est GFR (Non-Af Amer) POC Glucose (mg/dL) Random Glucose Calcium Total Bilirubin AST ALT Alkaline Phosphatase Total Protein Albumin Globulin Albumin/Globulin Ratio Urine Color Yellow Urine Appearance Clear Urine pH 6.0 Ur Specific [place] 1.020 Urine Protein Negative Urine Glucose (UA) Negative Urine Ketones Negative Urine Blood Negative Urine Nitrate Negative Urine Bilirubin Negative Urine Urobilinogen 0.2 Ur Leukocyte Esterase Negative Carbamazepine 03/23/17 03/23/17 03/23/17 07:00 07:33 09:00 WBC RBC Hgb Hct MCV MCH MCHC RDW Plt Count Gran % Lymph % (Auto) [place] % (Auto) Eos % (Auto) Baso % (Auto) Gran # Lymph # [place] # Eos # Baso # PT INR APTT Sodium 139 Potassium 4.0 Chloride 106 Carbon Dioxide 24 Anion Gap 13 BUN 21 Creatinine 0.8 Est GFR ( Amer) > 60 Est GFR (Non-Af Amer) > 60 POC Glucose (mg/dL) 98 Random Glucose 94 Calcium 8.7 Total Bilirubin 0.5 AST 36 ALT 34 Alkaline Phosphatase 89 Total Protein 6.0 Albumin 3.3 Globulin 2.7 Albumin/Globulin Ratio 1.2 Urine Color Urine Appearance Urine pH Ur Specific [place] Urine Protein Urine Glucose (UA) Urine Ketones Urine Blood Urine Nitrate Urine Bilirubin Urine Urobilinogen Ur Leukocyte Esterase Carbamazepine < 3 L Critical Care Progress Note - Nutrition Nutrition: Nutrition Category Date Time Status Heart Healthy Diet [DIET] Diets 03/22/17 Dinner Ordered Assessment/Plan - Assessment and Plan (Free Text) Assessment: 81F w/ pmhx HLD, CVA, multiple TIA with recent TIA on 03/12/17 who presents with weakness on L upper and lower extremities. Head CT showed chronic microvascular changes with chronic focal infarct in right parietal white matter. Patient was given tPA. Repeat CT shows no active bleed or acute changes. currently moves all 4 extremities and follows simple commands Plan: Neuro: AMS and LUE and LLE weakness can be secondary to CVA s/p TPA Repeat head CT this am No active bleed c/s neurology Seizure precaution, aspiration precaution Neuro checks Speech/Swallow, physical therapy eval Fall precaution EEG pending ASA, Lipitor restarted Cardio: Hemodynamically at this time Maintain MAP >65 Echo showed normal LV function of 71% NS@100 Resp: Patient comfortable on room air Maintain SPO2>92% Head of bed elevated, aspiration precaution GI: HHD GI ppx- Protonix Heme: Hgb stable- no sign of bleed on recent CT Neprho: monitor electrolytes and replace PRN ID: [id number], no leukocytosis pt had UTI on 03/11- will repeat U/A Endo: Maintain euglycemia (140s-180s) Heme: DVT ppx: SCDs <Byron Parra - Last Filed: 03/23/17 11:07> CCU Objective - Vital Signs / Intake & Output Intake and Output (Last 8hrs): Intake & Output 03/22/17 03/23/17 03/23/17 22:59 06:59 14:59 Intake Total 1330 700 Output Total 50 2400 Balance 1280 -1700 Intake: IV 1210 700 Left Antecubital 10 Right Forearm 1200 700 Oral 120 0 Output: Urine 50 2400 Urethral (Young) 50 2400 Other: # Bowel Movements 0 0 - Medications Active Medications: Active Medications Generic Name Dose Route Start Last Admin Trade Name Freq PRN Reason Stop Dose Admin Acetaminophen 650 mg 03/22/17 08:17 Tylenol 325mg Tab PO Q4H PRN Pain, Mild (1-3) Aspirin 81 mg 03/22/17 13:15 03/23/17 10:13 Aspirin Chewable PO 81 mg DAILY PHIL Administration Atorvastatin Calcium 40 mg 03/22/17 17:00 03/22/17 17:15 Lipitor PO 40 mg DIN PHIL Administration Carbamazepine 200 mg 03/23/17 10:00 Tegretol PO BID PHIL Protocol Sodium Chloride 1,000 mls @ 100 mls/hr 03/22/17 10:30 03/23/17 06:00 Sodium Chloride 0.9% IV 100 mls/hr .Q10H PHIL Administration Labetalol HCl 10 mg 03/22/17 04:27 Trandate IVP Q6 PRN Systolic Blood Pressure Pantoprazole Sodium 40 mg 03/22/17 10:00 03/23/17 10:13 Protonix Inj IVP 40 mg DAILY PHIL Administration - Patient Studies Lab Studies: Lab Studies 03/23/17 03/23/17 03/23/17 Range/Units 09:00 07:33 07:00 WBC (4.5-11.0) 10^3/ul RBC (3.5-6.1) 10^6/uL Hgb (12.0-16.0) g/dL Hct (36.0-48.0) % MCV (80.0-105.0) fl MCH (25.0-35.0) pg MCHC (31.0-37.0) g/dl RDW (11.5-14.5) % Plt Count (120.0-450.0) 10^3/uL Gran % (50.0-68.0) % Lymph % (Auto) (22.0-35.0) % [place] % (Auto) (1.0-6.0) % Eos % (Auto) (1.5-5.0) % Baso % (Auto) (0.0-3.0) % Gran # (1.4-6.5) Lymph # (1.2-3.4) [place] # (0.1-0.6) Eos # (0.0-0.7) Baso # (0.0-2.0) K/mm3 PT (9.4-12.5) SECONDS INR (0.93-1.08) APTT (25.1-36.5) Seconds Sodium 139 (132-148) mmol/L Potassium 4.0 (3.6-5.0) mmol/L Chloride 106 (98-107) mmol/L Carbon Dioxide 24 (21-33) mmol/L Anion Gap 13 (10-20) BUN 21 (7-21) mg/dL Creatinine 0.8 (0.7-1.2) mg/dl Est GFR ( Amer) > 60 Est GFR (Non-Af Amer) > 60 POC Glucose (mg/dL) 98 (65-110) mg/dL Random Glucose 94 (70-110) mg/dL Calcium 8.7 (8.4-10.5) mg/dL Total Bilirubin 0.5 (0.2-1.3) mg/dL AST 36 (14-36) U/L ALT 34 (7-56) U/L Alkaline Phosphatase 89 (38-126) U/L Total Protein 6.0 (5.8-8.3) g/dL Albumin 3.3 (3.0-4.8) g/dL Globulin 2.7 gm/dL Albumin/Globulin Ratio 1.2 (1.1-1.8) Urine Color (YELLOW) Urine Appearance (CLEAR) Urine pH (4.7-8.0) Ur Specific [place] (1.005-1.035) Urine Protein (<30 mg/dL) mg/dL Urine Glucose (UA) (NEGATIVE) mg/dL Urine Ketones (NEGATIVE) mg/dL Urine Blood (NEGATIVE) Urine Nitrate (NEGATIVE) Urine Bilirubin (NEGATIVE) Urine Urobilinogen (<1 E.U./dL) E.U./dL Ur Leukocyte Esterase (NEGATIVE) [place]/uL Carbamazepine < 3 L (4.0-10.0) ug/mL 03/23/17 03/23/17 03/23/17 Range/Units 07:00 07:00 04:00 WBC 9.8 D (4.5-11.0) 10^3/ul RBC 5.08 (3.5-6.1) 10^6/uL Hgb 9.5 L (12.0-16.0) g/dL Hct 30.6 L (36.0-48.0) % MCV 60.2 L (80.0-105.0) fl MCH 18.7 L (25.0-35.0) pg MCHC 31.0 (31.0-37.0) g/dl RDW 15.4 H (11.5-14.5) % Plt Count 242 (120.0-450.0) 10^3/uL Gran % 73.8 H (50.0-68.0) % Lymph % (Auto) 17.6 L (22.0-35.0) % [place] % (Auto) 8.0 H (1.0-6.0) % Eos % (Auto) 0.4 L (1.5-5.0) % Baso % (Auto) 0.2 (0.0-3.0) % Gran # 7.24 H (1.4-6.5) Lymph # 1.7 (1.2-3.4) [place] # 0.8 H (0.1-0.6) Eos # 0.0 (0.0-0.7) Baso # 0.02 (0.0-2.0) K/mm3 PT 12.7 H (9.4-12.5) SECONDS INR 1.10 H (0.93-1.08) APTT 28.9 (25.1-36.5) Seconds Sodium (132-148) mmol/L Potassium (3.6-5.0) mmol/L Chloride (98-107) mmol/L Carbon Dioxide (21-33) mmol/L Anion Gap (10-20) BUN (7-21) mg/dL Creatinine (0.7-1.2) mg/dl Est GFR ( Amer) Est GFR (Non-Af Amer) POC Glucose (mg/dL) (65-110) mg/dL Random Glucose (70-110) mg/dL Calcium (8.4-10.5) mg/dL Total Bilirubin (0.2-1.3) mg/dL AST (14-36) U/L ALT (7-56) U/L Alkaline Phosphatase (38-126) U/L Total Protein (5.8-8.3) g/dL Albumin (3.0-4.8) g/dL Globulin gm/dL Albumin/Globulin Ratio (1.1-1.8) Urine Color Yellow (YELLOW) Urine Appearance Clear (CLEAR) Urine pH 6.0 (4.7-8.0) Ur Specific [place] 1.020 (1.005-1.035) Urine Protein Negative (<30 mg/dL) mg/dL Urine Glucose (UA) Negative (NEGATIVE) mg/dL Urine Ketones Negative (NEGATIVE) mg/dL Urine Blood Negative (NEGATIVE) Urine Nitrate Negative (NEGATIVE) Urine Bilirubin Negative (NEGATIVE) Urine Urobilinogen 0.2 (<1 E.U./dL) E.U./dL Ur Leukocyte Esterase Negative (NEGATIVE) [place]/uL Carbamazepine (4.0-10.0) ug/mL Laboratory Results - last 24 hr 03/23/17 03/23/17 03/23/17 04:00 07:00 07:00 WBC 9.8 D RBC 5.08 Hgb 9.5 L Hct 30.6 L MCV 60.2 L MCH 18.7 L MCHC 31.0 RDW 15.4 H Plt Count 242 Gran % 73.8 H Lymph % (Auto) 17.6 L [place] % (Auto) 8.0 H Eos % (Auto) 0.4 L Baso % (Auto) 0.2 Gran # 7.24 H Lymph # 1.7 [place] # 0.8 H Eos # 0.0 Baso # 0.02 PT 12.7 H INR 1.10 H APTT 28.9 Sodium Potassium Chloride Carbon Dioxide Anion Gap BUN Creatinine Est GFR ( Amer) Est GFR (Non-Af Amer) POC Glucose (mg/dL) Random Glucose Calcium Total Bilirubin AST ALT Alkaline Phosphatase Total Protein Albumin Globulin Albumin/Globulin Ratio Urine Color Yellow Urine Appearance Clear Urine pH 6.0 Ur Specific [place] 1.020 Urine Protein Negative Urine Glucose (UA) Negative Urine Ketones Negative Urine Blood Negative Urine Nitrate Negative Urine Bilirubin Negative Urine Urobilinogen 0.2 Ur Leukocyte Esterase Negative Carbamazepine 03/23/17 03/23/17 03/23/17 07:00 07:33 09:00 WBC RBC Hgb Hct MCV MCH MCHC RDW Plt Count Gran % Lymph % (Auto) [place] % (Auto) Eos % (Auto) Baso % (Auto) Gran # Lymph # [place] # Eos # Baso # PT INR APTT Sodium 139 Potassium 4.0 Chloride 106 Carbon Dioxide 24 Anion Gap 13 BUN 21 Creatinine 0.8 Est GFR ( Amer) > 60 Est GFR (Non-Af Amer) > 60 POC Glucose (mg/dL) 98 Random Glucose 94 Calcium 8.7 Total Bilirubin 0.5 AST 36 ALT 34 Alkaline Phosphatase 89 Total Protein 6.0 Albumin 3.3 Globulin 2.7 Albumin/Globulin Ratio 1.2 Urine Color Urine Appearance Urine pH Ur Specific [place] Urine Protein Urine Glucose (UA) Urine Ketones Urine Blood Urine Nitrate Urine Bilirubin Urine Urobilinogen Ur Leukocyte Esterase Carbamazepine < 3 L Critical Care Progress Note - Nutrition Nutrition: Nutrition Category Date Time Status Heart Healthy Diet [DIET] Diets 03/22/17 Dinner Ordered Assessment/Plan - Assessment and Plan (Free Text) Plan: Patient seen and examined, on rounds with resident, agree with note with following additions/exceptions: 81yo F with PMH of HLD, CVA, multiple TIA with recent TIA, presented weakness on L upper and lower extremities, CT head showed chronic microvascular changes with chronic focal infarct in right parietal white matter, patient was given tPA. Repeat CT head this morning, no acute bleed, MRI/MRA pending Acute CVA HTN HLD Recommend: - supp o2 as needed - BP control - IVF - ECHO - MRI/MRA brain - ASA, Statin - speech swallow eval - Neuro checks - follow up neurology - check HgbA1C, Lipid Panel - GI ppx, DVT ppx - stable, transfer to telemetry
--- NOTE | 2017-03-23 20:09 | HP ---
CHIEF COMPLAINT: Left side weakness and confusion. HISTORY OF PRESENT ILLNESS: An 81-year-old female with history of multiple TIAs and old CVAs, admitted for last TIA two weeks ago with MRI and CT angiogram stable with no acute infarct at that time, brought to the Emergency Room by ambulance from home. Daughter noticed that the patient moaning when she went to the room to check on how she was, confused and shortly after started with seizures and when ambulance came, the patient had another seizure in ambulance and also noted to have left side paralysis. Daughter stated that the patient had right side headache from two days prior to symptoms. There was no history of fever or chest pain or shortness of breath. 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 The patient is not fully compliant with her statin therapy, history of urinary tract infections recurrent with urinary bladder retention and hydronephrosis. PAST SURGICAL HISTORY: No surgical history. ALLERGIES: THE PATIENT IS ALLERGIC TO CODEINE. PRESENT MEDICATIONS: Lovastatin 20 mg daily and aspirin 81 mg daily. FAMILY HISTORY: Significant for heart disease. SOCIAL HISTORY: The patient is ex-smoker, smoked for at least 20 years, quit 20 years ago. No history of alcohol or drug use. The patient is . The patient is living presently with her daughter, until 2 weeks ago, she was working apartment maintenance worker in school, until recently independent of activity of daily living. REVIEW OF SYSTEMS: Not obtained due to patient condition. PHYSICAL EXAMINATION: VITAL SIGNS: This morning, temperature 98, blood pressure 156/66, pulse 80 regular, respiratory rate is 20. The patient is presently sedated. HEENT: Head is normocephalic, atraumatic. No jaundice. Oral mucosa is moist. NECK: Supple. CARDIOPULMONARY: Regular rhythm and rate. LUNGS: Clear to auscultation. ABDOMEN: Soft, nontender, nondistended. EXTREMITIES: With no edema. NEUROLOGICAL: Significant for left side weakness, which seems improved since admission. DIAGNOSTIC TESTS: CBC with WBC 6.4, hemoglobin 11.1, hematocrit 35.3. Repeated one this morning WBC 9.9, hemoglobin 9.5, slightly dropped and hematocrit 30.6. Platelet count is normal 242. Chemistry this morning was normal. Cholesterol 201 with LDL 109, triglycerides 174. Urinalysis was normal. CT scan of head showed no acute bleeding, chronic ischemic changes. No acute changes. The quality of CT scan was not good due to the patient motion. Repeat CT scan yesterday was again negative for any acute ischemia or active bleeding. The patient had CT angiogram of head and neck this morning, which results are still pending. ASSESSMENT: 1. An 81-year-old female with history of ischemic cerebral disease with multiple transient ischemic attacks and with new acute cerebrovascular accident and left hemiparesis, status post tPA. 2. Hyperlipidemia. 3. Anemia, possibly dilutional, no signs of active bleeding. 4. History of urinary bladder retention. PLAN OF TREATMENT: Continue close followup. Neurological check ups. Swallow study was passed and the patient was able to start some oral diet. Followup CT angiogram of head and neck. The patient will need MRI of brain for better evaluation. We will start Physical Therapy. Monitor closely due to agitation. Angélica Guerrero MD [facility]
[2017-03-24] MEDS: Sodium Chloride 0.9% 1,000 ML IV SCH (04:30)
[2017-03-24 07:41] LABS: BASO # 0.04 K/mm3 (0.0-2.0); BASO % 0.6 % (0.0-3.0); EOS # 0.2 (0.0-0.7); EOS % 2.2 % (1.5-5.0); GRAN # 4.99 (1.4-6.5); GRAN % 68.6 % (50.0-68.0); HEMOGLOBIN 9.9 g/dL (12.0-16.0); LYMPH # 1.6 (1.2-3.4); MEAN CELL VOLUME 60.2 fl (80.0-105.0); MEAN CORPUSCULAR HEMOGLOBIN 18.8 pg (25.0-35.0); MEAN CORPUSCULAR HGB CONC 31.1 g/dl (31.0-37.0); MONO # 0.5 (0.1-0.6); MONO % 6.6 % (1.0-6.0); PLATELET COUNT 231 10^3/uL (120.0-450.0); RBC 5.28 10^6/uL (3.5-6.1); RED CELL DISTRIBUTION WIDTH 15.6 % (11.5-14.5); WHITE BLOOD COUNT 7.3 10^3/ul (4.5-11.0)
[2017-03-24 08:02] LABS: ALB/GLOB RATIO 1.2 (1.1-1.8); ALBUMIN 2.9 g/dL (3.0-4.8); ALT/SGPT 40 U/L (7-56); AST/SGOT 32 U/L (14-36); BLOOD UREA NITROGEN 14 mg/dL (7-21); CALCIUM 8.3 mg/dL (8.4-10.5); GFR AFRICAN-AMERICAN > 60; GFR NON-AFRICAN AMERICAN > 60
--- NOTE | 2017-03-24 11:53 | PN ---
DATE: SUBJECTIVE: The patient remains in an intensive care unit. The patient was very agitated last night, improved this morning. The patient is awake during examination, alert. She follows simple commands. Denies any headache. PHYSICAL EXAMINATION GENERAL: She is awake, alert, in no acute form of distress, follows simple commands. VITAL SIGNS: Vitals are stable. The patient is afebrile. Temperature 98.4, pulse 54, blood pressure 137/59, respiratory rate 16, oxygen saturation 96% on room air. HEENT: Head is normocephalic, atraumatic. Eyes with pupils reactive to light. Oral mucosa is moist. NECK: Supple. LUNGS: Clear to auscultation. HEART: With regular rhythm and rate. ABDOMEN: Soft, nontender, and nondistended. EXTREMITIES: Right upper extremity with mild edema of the hand and wrist area. No tenderness. Lower extremities with no edema. NEUROLOGICAL: The patient is alert, awake, oriented, but follows simple command. The patient moves four extremities. No pathological reflexes. DIAGNOSTIC TESTS: Stable CBC with hemoglobin 9.9 and hematocrit 31.8. Normal chemistry except lower calcium and albumin. CT angiogram of neck and brain yesterday negative for any occlusions. Echocardiogram is still pending. MRI was not done due to the patient agitation. ASSESSMENT 1. Acute cerebrovascular accident with improving left hemiparesis and persistent confusion. 2. Anemia with stable hemoglobin. 3. Hyperlipidemia. 4. History of urinary bladder distention, presently with Young catheter with good urine output. PLAN OF TREATMENT: Urological followup appreciated. The patient will need MRI if less agitated. We will continue physical therapy. Continue p.o. intake as per speech therapy recommendation. Close monitoring for signs of aspiration. Case was discussed with her daughter last night. Angélica Guerrero MD
--- NOTE | 2017-03-24 14:12 | CP.PCM.PN ---
Subjective - Date & Time of Evaluation Date of Evaluation: 03/24/17 Time of Evaluation: 13:30 - Subjective Subjective: This morning, is doing well. She has only mild paraphasic errors, who has no weakness, or facial asymmetry. Tolerated TPA well, wtih no intracerebral hemorrhage. A repeat CT scan of the head later this morning did not show bleed. She continues to have apraxia, with some mild right left confusion, and some paraphasic errors. For example, she thought my watch face was a quarter, and her affect shows mathew indifference. On exam: Aaox3. pupils 3mm-2mm with light. CN 2-12 normal. Can draw clock with difficulty. Cannot draw intersecting pentagons. Paraphasic errors, apraxia. Motro: left arm: drift, with 4+/5 ul and all other muscle groups normal. Sensory: no abnormalities. Gait: not tested DTR: +1 ul and ll bl. toes downgoing. no clonus. Objective - Vital Signs/Intake and Output Vital Signs (last 24 hours): Temp Pulse Resp BP Pulse Ox 98.4 F 64 16 137/59 L 96 03/24/17 08:00 03/24/17 08:46 03/24/17 08:40 03/24/17 08:00 03/24/17 08:40 Intake and Output: 03/24/17 03/24/17 06:59 18:59 Intake Total 1300 Output Total 1650 Balance -350 - Medications Medications: Current Medications Acetaminophen (Tylenol 325mg Tab) 650 mg PO Q4H PRN PRN Reason: Pain, Mild (1-3) Aspirin (Aspirin Chewable) 81 mg PO DAILY [facility] Last Admin: 03/24/17 09:40 Dose: 81 mg Atorvastatin Calcium (Lipitor) 40 mg PO DIN [facility] Last Admin: 03/23/17 18:15 Dose: 40 mg Carbamazepine (Tegretol) 200 mg PO BID [facility] PRN Reason: Protocol Last Admin: 03/24/17 09:40 Dose: 200 mg Sodium Chloride (Sodium Chloride 0.9%) 1,000 mls @ 100 mls/hr IV .Q10H [facility] Last Admin: 03/24/17 04:30 Dose: 100 mls/hr Labetalol HCl (Trandate) 10 mg IVP Q6 PRN PRN Reason: Systolic Blood Pressure Pantoprazole Sodium (Protonix Ec Tab) 40 mg PO ACB PHIL - Labs Labs: 03/24/17 06:00 03/24/17 06:00 PT 12.7 SECONDS (9.4-12.5) H 03/23/17 07:00 INR 1.10 (0.93-1.08) H 03/23/17 07:00 APTT 28.9 Seconds (25.1-36.5) 03/23/17 07:00 Assessment and Plan - Assessment and Plan (Free Text) Assessment: 81 yr old woman with ischemic right mca stroke, s/p TPA several days, with mild language issues. Plan: 1. Stroke workup; ECHO: pending. CTA: normal. On statin MRI: pending. Carotid Dopplers: pending. 2. SPeech therapy needed, physical therapy for gait training. 3. DIsposition: rehab.
--- NOTE | 2017-03-24 14:56 | CT ---
PROCEDURE: CT HEAD WITHOUT CONTRAST. HISTORY: STROKE COMPARISON: None available. TECHNIQUE: Axial computed tomography images were obtained through the head/brain without intravenous contrast. Radiation dose: Total exam DLP = 817 mGy-cm. This CT exam was performed using one or more of the following dose reduction techniques: Automated exposure control, adjustment of the mA and/or kV according to patient size, and/or use of iterative reconstruction technique. FINDINGS: HEMORRHAGE: No intracranial hemorrhage. BRAIN: No mass effect or edema. Encephalomalacia is seen in the right parietal white matter extending to the cortex. There are no acute intracranial findings. VENTRICLES: Unremarkable. No hydrocephalus. CALVARIUM: Unremarkable. PARANASAL SINUSES: Unremarkable as visualized. No significant inflammatory changes. MASTOID AIR CELLS: Unremarkable as visualized. No inflammatory changes. OTHER FINDINGS: None. IMPRESSION: Encephalomalacia in the right parietal white matter. No acute intracranial findings
--- NOTE | 2017-03-24 19:13 | EEG ---
DATE: 03/24/2017 CONDITION OF THE RECORDING: Drowsy. DIAGNOSIS: Cerebrovascular accident/myocardial infarction. MEDICATIONS: Reviewed by nurse's reconciliation sheet. INTERPRETATION: This is a 16-channel international recording. Background activity of this tracing was composed of 6 to 7 cycles per second. There was small amount of beta activity of 16 to 20 cycles per second seen in this recording. There was small amount of theta activity of 5 to 7 cycles per second seen in this tracing. Drowsiness was characterized by mixed beta and theta activities. Sleep was characterized by vertex transient waves, sleep spindles, and bilateral slowing. Photic stimulation showed no changes in the tracing. No paroxysmal activity was noted in this recording. CONCLUSION: Abnormal EEG due to presence of some mild diffuse slowing throughout consistent with mild bilateral cerebral dysfunction. No evidence of any epileptiform activity. Please clinically correlate. Kang Wright MD
[2017-03-25] MEDS: Sodium Chloride 0.9% 1,000 ML IV SCH (00:48)
[2017-03-25 06:37] LABS: BASO # 0.05 K/mm3 (0.0-2.0); BASO % 0.9 % (0.0-3.0); EOS # 0.2 (0.0-0.7); GRAN # 3.64 (1.4-6.5); HEMOGLOBIN 9.6 g/dL (12.0-16.0); LYMPH # 1.4 (1.2-3.4); LYMPH % 23.6 % (22.0-35.0); MEAN CELL VOLUME 58.7 fl (80.0-105.0); MEAN CORPUSCULAR HEMOGLOBIN 18.8 pg (25.0-35.0); MONO # 0.5 (0.1-0.6); MONO % 8.5 % (1.0-6.0); PLATELET COUNT 206 10^3/uL (120.0-450.0); RBC 5.11 10^6/uL (3.5-6.1); RED CELL DISTRIBUTION WIDTH 15.9 % (11.5-14.5); WHITE BLOOD COUNT 5.8 10^3/ul (4.5-11.0)
[2017-03-25 06:52] LABS: ALB/GLOB RATIO 1.2 (1.1-1.8); ALBUMIN 2.8 g/dL (3.0-4.8); ALT/SGPT 38 U/L (7-56); AST/SGOT 28 U/L (14-36); BLOOD UREA NITROGEN 11 mg/dL (7-21); CALCIUM 8.7 mg/dL (8.4-10.5); GFR AFRICAN-AMERICAN > 60; GFR NON-AFRICAN AMERICAN > 60
--- NOTE | 2017-03-25 07:19 | CP.PCM.PN ---
Subjective - Date & Time of Evaluation Date of Evaluation: 03/25/17 Time of Evaluation: 07:16 - Subjective Subjective: Ms. Zavala was seen and examined at the bedside. She is alert, with episode of confusion. She is able to verbalize time( 2018), but not place (her bedroom) , and person ( no response). She denies any headache, dizziness, nause, or vomiting. She is able to follow simple commands. She remains with left arm drift. Repaet CT of the head showed encephalomalacia in the right parietal white matter, no new bleed noted. Her CTA were both unremarkable.She remains on a 1:1 sitter for patient safety. There was no untoward events overnight. Objective - Vital Signs/Intake and Output Vital Signs (last 24 hours): Temp Pulse Resp BP Pulse Ox 98.4 F 73 29 H 134/64 96 03/24/17 16:00 03/25/17 05:21 03/24/17 16:50 03/24/17 16:00 03/24/17 16:50 Intake and Output: 03/25/17 03/25/17 06:59 18:59 Intake Total 1420 Output Total 1100 Balance 320 - Medications Medications: Current Medications Acetaminophen (Tylenol 325mg Tab) 650 mg PO Q4H PRN PRN Reason: Pain, Mild (1-3) Aspirin (Aspirin Chewable) 81 mg PO DAILY [facility] Last Admin: 03/24/17 09:40 Dose: 81 mg Atorvastatin Calcium (Lipitor) 40 mg PO DIN [facility] Last Admin: 03/24/17 17:53 Dose: 40 mg Carbamazepine (Tegretol) 200 mg PO BID [facility] PRN Reason: Protocol Last Admin: 03/24/17 17:56 Dose: 200 mg Sodium Chloride (Sodium Chloride 0.9%) 1,000 mls @ 100 mls/hr IV .Q10H [facility] Last Admin: 03/25/17 00:48 Dose: 100 mls/hr Labetalol HCl (Trandate) 10 mg IVP Q6 PRN PRN Reason: Systolic Blood Pressure Pantoprazole Sodium (Protonix Ec Tab) 40 mg PO ACB [facility] - Labs Labs: 03/25/17 06:15 03/25/17 06:15 PT 12.7 SECONDS (9.4-12.5) H 03/23/17 07:00 INR 1.10 (0.93-1.08) H 03/23/17 07:00 APTT 28.9 Seconds (25.1-36.5) 03/23/17 07:00 - Constitutional Appears: No Acute Distress - Head Exam Head Exam: NORMAL INSPECTION - Neurological Exam Neurological Exam: Alert, Awake Neuro motor strength exam: Left Upper Extremity: 3, Right Upper Extremity: 4, Left Lower Extremity: 3, Right Lower Extremity: 4 Additional comments: She continues to have apraxia, with some mild right left confusion, and some paraphasic errors. She is able to follow simple commands. Sensation remains intact. Assessment and Plan (1) Cerebral vascular accident Assessment & Plan: Case discussed with Dr. Raymundo, continue all current medical, physical, occupational therapies. Pending results of echocardiogram. Follow up MRI of the brain. Recommends for rehab for discharge planning. Status: Acute
[2017-03-25] MEDS: Pantoprazole 40 mg EC Tab PO SCH (07:30)
--- NOTE | 2017-03-25 08:45 | CON ---
DATE: 03/24/2017 GENITOURINARY CONSULTATION CHIEF COMPLAINT: Weakness and confusion. HISTORY OF PRESENT ILLNESS: This an 81-year-old female with a history of multiple TIAs and CVAs, who was admitted a few weeks ago with further TIA. She now returns with weakness and confusion. She apparently had a seizure and now has been admitted with CVA and further left-sided paralysis. Past history, patient has had recurrent urinary tract infections and has had urinary retention during prior admission with hydronephrosis, which apparently had resolved with bladder drainage. consultation was then requested. PAST MEDICAL HISTORY: Significant for TIAs, CVAs, migraines, seizures, anxiety, hyperlipidemia urinary tract infections, urinary retention. MEDICATIONS AT HOME: Include lovastatin and aspirin. Currently on Lipitor; aspirin; Protonix; Tegretol; Trandate; Tylenol; was on Ditropan, which has been stopped; and Protonix. ALLERGIES: ALLERGIC TO CODEINE AND NOVOCAIN. REVIEW OF SYSTEMS: These could not be obtained as the patient is unable to give history. Positives are per the HPI at this point. PHYSICAL EXAMINATION: VITAL SIGNS: Patient has been afebrile, blood pressure 137/59, respirations 21, pulse 68. GENERAL: Patient is awake, but lethargic and somewhat confused. NECK: Her neck is supple. There is no obvious adenopathy. CHEST: Reveals slightly increased inspiratory effort. CARDIAC: Shows positive S1, S2. There is mild peripheral edema. ABDOMEN: Abdomen is soft, nontender, nondistended. There is no hepatosplenomegaly. There is no costovertebral angle tenderness. Genitourinary: External genitalia within normal limits. There is a Young catheter in place, which is draining clear colored urine. LABORATORY EXAMINATION: WBC count was 7.3, BUN 14 with a creatinine of 0.8. GFR greater than 60. Urinalysis was negative for blood or leukocytes, negative for nitrites. On radiologic exam, no pertinent recent urologic imaging. Patient did have a renal ultrasound done on 03/11, which showed bilateral pelvicaliectasis. IMPRESSION AND PLAN: This is an 81-year-old female who apparently had a repeat cerebrovascular accident and seizure. Urologically, patient has been doing well with the indwelling Young catheter. Her urine is currently negative. Plan is to continue the Young catheter for now. I agree with discontinuing Ditropan or any anticholinergic medications. When the patient has improved, we can consider repeat voiding trial, but we will need to check a postvoid residual. I would not consider that at this time given the patient's current condition. Plan will be to repeat a renal ultrasound as well to see if the fullness has resolved. Thank you for allowing us to participate in the care of this patient. We will continue to follow her with you. Blayne Cornell MD
--- NOTE | 2017-03-25 11:38 | PN ---
DATE: SUBJECTIVE: The patient was seen at bedside this morning. Very drowsy. On review of list of medications, sedation was not given. Reviewed the nurses report. The patient is tolerating diet with no swallowing problems. PHYSICAL EXAMINATION: VITAL SIGNS: The patient is afebrile. Temperature is 98.4, pulse 73, blood pressure 134/64, respiratory rate 23. GENERAL: The patient is drowsy, but arousable this morning and answering simple questions. HEENT: Head is normocephalic, atraumatic. NECK: Supple. LUNGS: Clear to auscultation. HEART: Regular rhythm and rate. ABDOMEN: Soft, nontender, nondistended. EXTREMITIES: With no edema. NEUROLOGICAL: The patient moves all extremities. DIAGNOSTIC TESTS: Diagnostic studies this morning, CBC is stable with hemoglobin 9.6, hematocrit 30, platelet count 206. Chemistry is normal. A repeated CT scan yesterday showed chronic encephalomalacia. No acute infarct. No acute bleeding. ASSESSMENT: 1. Acute cerebrovascular accident with improving left hemiparesis and intermittent confusion. 2. Anemia of chronic disease, no signs of acute bleeding, hemodynamically stable. 3. Left side weakness. 4. Hyperlipidemia. PLAN OF TREATMENT: We will continue close neurological monitoring. The patient will need MRI of the head when stable. The patient will continue physical therapy evaluation for subacute rehab. We will discuss with Case Management. Angélica Guerrero MD
--- NOTE | 2017-03-25 13:53 | CT ---
PROCEDURE: CT scan brain dated 03/25/2017 HISTORY: Mental status change COMPARISON: Comparison made with prior study 03/24/2017. TECHNIQUE: Axial computed tomography images were obtained through the head/brain without intravenous contrast. Radiation dose: Total exam DLP = 803.58 mGy-cm. This CT exam was performed using one or more of the following dose reduction techniques: Automated exposure control, adjustment of the mA and/or kV according to patient size, and/or use of iterative reconstruction technique. FINDINGS: HEMORRHAGE: No acute parenchymal, subarachnoid or extra-axial hemorrhage. BRAIN: Re- demonstrated are chronic infarct changes in the left posterior temporoparietal watershed zone with moderate diffuse/confluent chronic white matter ischemic changes seen extending peripherally from the periventricular into the deep and subcortical regions bilaterally. There may also be a somewhat more discrete subcortical infarct in the left posterior superior parietal region present. Scattered chronic bilateral basal nuclei lacunar type infarcts are present. Moderate generalized volume loss. Mild vascular calcifications again seen. VENTRICLES: No obstructive hydrocephalus. CALVARIUM: There are no acute calvarial fractures. PARANASAL SINUSES: Mild mucosal thickening within multiple ethmoid air cells extending superiorly into the inferior aspect of the frontal sinus. Minimal mucosal thickening within the sphenoid sinus. . MASTOID AIR CELLS: Unremarkable as visualized. No inflammatory changes. OTHER FINDINGS: None. IMPRESSION: No acute intracranial hemorrhage. Chronic right posterior temporoparietal infarct with moderate diffuse confluent white matter ischemic changes with questionable more discrete left posterior superior parietal subcortical infarct. Moderate generalized volume loss.
--- NOTE | 2017-03-26 00:37 | MRI ---
EXAM: MR Head Without Intravenous Contrast EXAM DATE/TIME: 03/25/2017 11:37 AM CLINICAL HISTORY: The patient age is 81 years old and is female; Signs and symptoms; Syncope and collapse; Patient HX: Stroke/syncope; Additional info: Ischemic stroke Facility exam id and description: Mri br s brain without contrast TECHNIQUE: Magnetic resonance images of the head/brain without intravenous contrast in multiple planes. COMPARISON: MR - BRAIN WITHOUT CONTRAST 2017-03-11 14:48 FINDINGS: Brain: There is no restricted diffusion within the brain to suggest acute ischemic change. T2 hyperintense encephalomalacia with adjacent FLAIR hyperintense gliosis are again visualized within the right posterior parietal lobe, consistent with an old infarct. There are multiple foci of high FLAIR signal intensity within the cerebral white matter. There is no mass effect or restricted diffusion associated with these foci. In a patient this age, this likely represents chronic small vessel ischemic disease. There is mild prominence of the ventricles and sulci, compatible with atrophy. No intracerebral magnetic susceptibility hemosiderin is visualized. Ventricles: See above. Bones/joints: No acute abnormality. Sinuses: There is mucosal thickening of the bilateral sphenoid sinuses. Minimal mucosal thickening is seen in a few ethmoid air cells. No acute sinusitis. Mastoid air cells: No mastoid effusion. Orbits: No acute abnormality, as visualized. IMPRESSION: 1. There is no restricted diffusion within the brain to suggest acute ischemic change. 2. Encephalomalacia with adjacent gliosis are again visualized within the right posterior parietal lobe, consistent with an old infarct. 3. There are multiple foci of high FLAIR signal intensity within the cerebral white matter. In a patient this age, this likely represents chronic small vessel ischemic disease. 4. Mild atrophy. 5. Incidental/non-acute findings are described above.
--- NOTE | 2017-03-26 00:50 | MRI ---
EXAM: MR Angiography Head Without Intravenous Contrast EXAM DATE/TIME: 03/25/2017 11:38 AM CLINICAL HISTORY: The patient age is 81 years old and is female; Signs and symptoms; Syncope and collapse; Patient HX: Stroke/syncope; Additional info: Ischemic stroke Facility exam id and description: Mri mra heads mra head without contrast TECHNIQUE: Magnetic resonance angiography images of the head without intravenous contrast. 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 This is stable compared to the previous MRA. Intracranial segment is patent with no significant stenosis. Right anterior cerebral artery: No occlusion or significant stenosis. No aneurysm. Right middle cerebral artery: No occlusion or significant stenosis. No aneurysm. Right posterior cerebral artery: No occlusion or significant stenosis. No aneurysm. Right vertebral artery: No occlusion or significant stenosis. Left internal carotid artery: No acute findings. Intracranial segment is patent with no significant stenosis. No aneurysm. Left anterior cerebral artery: Mild stenoses are visualized of the A2 segment of the left anterior cerebral artery. No aneurysm. Left middle cerebral artery: No occlusion or significant stenosis. No aneurysm. Left posterior cerebral artery: No occlusion or significant stenosis. No aneurysm. Left vertebral artery: A dominant left vertebral artery is identified, without significant stenosis or occlusion. Basilar artery: No occlusion or significant stenosis. No aneurysm. IMPRESSION: 1. Mild stenoses are visualized of the A2 segment of the left anterior cerebral artery. 2. 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 This is stable compared to the previous MRA. 3. Incidental/non-acute findings are described above.
[2017-03-26] MEDS: Sodium Chloride 0.9% 1,000 ML IV SCH (05:00)
[2017-03-26 07:07] LABS: HEMOGLOBIN 9.9 g/dL (12.0-16.0); MEAN CELL VOLUME 60.6 fl (80.0-105.0); MEAN CORPUSCULAR HEMOGLOBIN 18.7 pg (25.0-35.0); MEAN CORPUSCULAR HGB CONC 30.8 g/dl (31.0-37.0); PLATELET COUNT 215 10^3/uL (120.0-450.0); RED CELL DISTRIBUTION WIDTH 15.7 % (11.5-14.5); WHITE BLOOD COUNT 6.1 10^3/ul (4.5-11.0)
[2017-03-26 07:19] LABS: ALB/GLOB RATIO 1.2 (1.1-1.8); ALBUMIN 3.2 g/dL (3.0-4.8); ALT/SGPT 36 U/L (7-56); AST/SGOT 33 U/L (14-36); BLOOD UREA NITROGEN 10 mg/dL (7-21); CALCIUM 9.1 mg/dL (8.4-10.5); GFR AFRICAN-AMERICAN > 60; GFR NON-AFRICAN AMERICAN > 60
[2017-03-26 08:15] VITALS: BP 144/77; PULSE 70; RESP 22; TEMP 97.6; O2SAT 94
[2017-03-26] MEDS: Pantoprazole 40 mg EC Tab PO SCH (08:55)
--- NOTE | 2017-03-26 12:03 | CP.PCM.PN ---
Subjective - Date & Time of Evaluation Date of Evaluation: 03/26/17 Time of Evaluation: 12:00 - Subjective Subjective: Ms. Zavala was seen and examined at the bedside. She is alert, oriented to place ([facility]), but not time and person. She denies any headache, dizziness, nausea, or vomiting. She is able to follow simple commands. She has bilateral lower extremities SCD's. She is being transfer to a [facility] today. There was no untoward events overnight. Objective - Vital Signs/Intake and Output Vital Signs (last 24 hours): Temp Pulse Resp BP Pulse Ox 97.6 F 70 22 144/77 94 L 03/26/17 08:14 03/26/17 08:14 03/26/17 08:14 03/26/17 08:14 03/26/17 08:14 Intake and Output: 03/26/17 03/26/17 06:59 18:59 Intake Total 120 0 Output Total 150 550 Balance -30 -550 - Medications Medications: Current Medications Acetaminophen (Tylenol 325mg Tab) 650 mg PO Q4H PRN PRN Reason: Pain, Mild (1-3) Aspirin (Aspirin Chewable) 81 mg PO DAILY [facility] Last Admin: 03/26/17 09:43 Dose: 81 mg Atorvastatin Calcium (Lipitor) 40 mg PO DIN [facility] Last Admin: 03/25/17 17:44 Dose: 40 mg Carbamazepine (Tegretol) 200 mg PO BID [facility] PRN Reason: Protocol Last Admin: 03/26/17 09:43 Dose: 200 mg Labetalol HCl (Trandate) 10 mg IVP Q6 PRN PRN Reason: Systolic Blood Pressure Pantoprazole Sodium (Protonix Ec Tab) 40 mg PO ACB [facility] Last Admin: 03/26/17 08:55 Dose: 40 mg - Labs Labs: 03/26/17 06:00 03/26/17 06:00 PT 12.7 SECONDS (9.4-12.5) H 03/23/17 07:00 INR 1.10 (0.93-1.08) H 03/23/17 07:00 APTT 28.9 Seconds (25.1-36.5) 03/23/17 07:00 - Constitutional Appears: No Acute Distress - Head Exam Head Exam: NORMAL INSPECTION - Neurological Exam Neurological Exam: Alert, Awake Neuro motor strength exam: Left Upper Extremity: 4, Right Upper Extremity: 4, Left Lower Extremity: 3, Right Lower Extremity: 3 Additional comments: Neurological improved from previous examination. She is more alert, less confused and follows commands. Assessment and Plan (1) Cerebral vascular accident Assessment & Plan: Case discussed with Dr. Raymundo, continue all current medical, physical, physical, and occupational therapies. Recommend rehab for discharge disposition. NRA of the head without contrast ( 03/25/2017)- Mild stenoses are visualized of the a@ segment of the left CT of the head without contrast (03/25/17)- No acute acute intracranial hemorrhage. Chronic right posterior tempoparietal infarct with moderate diffuse confluent white matter ischemic changes with questionable more discrete left posterior superior parietal subcortical infarct. Moderate generalized volume loss. MRA of the head without contrast (03/25/2017)- There is mild stenoses of the A2 segment of the left anterior cerebral artery. 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 This is stable in comparison from previous MRA. MRI of the brain without contrast (03/25/2017)- There is a no restricted diffusion within the brain to suggest acute ischemic change. Encephalomalacia with adjacent gliosis are agin visualized within the right posterio parietal lobe, consistent with the old infarct. There is multiple foci of high FLAIR signal intensity within the cerebral white matter. In a patient this age, this is likely represents chronic small vessel ischemic changes. Mild atrophy. Status: Acute
--- NOTE | 2017-03-26 14:03 | CARD ---
APPROVED REPORT EXAM: Two-dimensional and M-mode echocardiogram with Doppler and color Doppler. INDICATION ISCHEMIC STROKE 2D DIMENSIONS Left Atrium (2D)4.2 (1.6-4.0cm)IVSd1.0 (0.7-1.1cm) LVDd3.7 (3.9-5.9cm)PWd1.0 (0.7-1.1cm) LVDs2.3 (2.5-4.0cm)FS (%) 37.5 % LVEF (%)68.6 (>50%) M-Mode DIMENSIONS Aortic Root2.70 (2.2-3.7cm)Aortic Cusp Exc.1.40 (1.5-2.0cm) Aortic Valve AoV Peak Kjuhrrnh810.0cm/[place] GR.6mmHg Mitral Valve MV E Fdlrthst65.1cm/sMV A Qbkhcmfe725.0cm/sE/A ratio0.8 TDI E/Lateral E'0.0E/Medial E'0.0 Tricuspid Valve TR Peak [id number]/sRAP [id number] Peak Gr.20mmHg [id number] LEFT VENTRICLE The left ventricle is normal size. There is normal left ventricular wall thickness. The left ventricular function is normal. The left ventricular ejection fraction is within the normal range. There is normal LV segmental wall motion. Transmitral Doppler flow pattern is Grade I-abnormal relaxation pattern. RIGHT VENTRICLE The right ventricle is normal size. There is normal right ventricular wall thickness. The right ventricular systolic function is normal. ATRIA The left atrium is borderline dilated. The right atrium size is normal. The interatrial septum is intact with no evidence for an atrial septal defect. AORTIC VALVE The aortic valve is mildly sclerotic. No aortic regurgitation is present. There is no aortic valvular stenosis. MITRAL VALVE The mitral valve is mildly thickened. Mitral regurgitation is mild. TRICUSPID VALVE There is mild tricuspid regurgitation. GREAT VESSELS The aortic root is normal in size. The IVC collapses <50% with inspiration. <Conclusion> The left ventricle is normal size. There is normal left ventricular wall thickness. The left ventricular function is normal. The left ventricular ejection fraction is within the normal range. There is normal LV segmental wall motion. Transmitral Doppler flow pattern is Grade I-abnormal relaxation pattern. Mitral regurgitation is mild. There is mild tricuspid regurgitation. The interatrial septum is intact with no evidence for an atrial septal defect.
--- NOTE | 2017-03-27 09:15 | DS ---
DATE: HISTORY OF PRESENT ILLNESS: The patient is an 81-year-old female who was admitted for sudden onset of left side weakness associated with episode of seizures. The patient was treated with TPA in the emergency room with good response and resolve of her left side weakness. The patient was seen this morning at bedside. She is feeling good. She has good appetite, tolerating diet with no signs of choking or dysphagia. She denies any headache or chest pain. The patient pulled out her Young catheter earlier this morning, but voided some urine. PHYSICAL EXAMINATION: On discharge; VITAL SIGNS: Showed vitals are stable. Temperature 97.6, pulse 70 regular, blood pressure 144/77, respiratory rate of 20 and oxygen saturation 96%. GENERAL: The patient is alert, awake, oriented to place, person and time. HEENT: Head is normocephalic, atraumatic. Eyes with pupils reactive to light. Oral mucosa is moist. No face drooping. NECK: Supple. No neck masses. LUNGS: Clear to auscultation. HEART: With regular rhythm and rate. ABDOMEN: Soft, nontender, nondistended. EXTREMITIES: With no edema. NEUROLOGICAL: Alert, awake, oriented to time, person. Moving all extremities. No signs of any significant neurological weakness. Deep tendon reflexes are normal. DIAGNOSTIC STUDIES: Showed stable CBC with hemoglobin 19.9, WBC 6.1. Chemistry was normal. MRI and MRA studies showed no acute CVA, but old right side encephalomalacia consistent with old CVA and severe chronic ischemic vessel disease. There is mild atrophy. The MRA showed mild stenosis in the left anterior cerebral artery and a small 6 mm aneurysmal dilation, which is the same as on previous MRI, no changes. EEG read as abnormal with mild brain dysfunction, but no seizure activity. ASSESSMENT: An 81-year-old female was admitted with; 1. Left side body weakness and episode of seizures and diagnosed with acute cerebrovascular disease with resolved neurological symptoms. 2. Chronic cerebrovascular disease. 3. Anemia of chronic disease, hemodynamically stable with no active bleeding. 4. Hyperlipidemia. 5. History of bladder dysfunction with urinary dysfunction. PLAN OF TREATMENT: Case was discussed with family, daughter at bedside, the patient was accepted to subacute rehab at [facility]. The patient will be transferred later to subacute rehab for further treatment. She will be maintained on aspirin, atorvastatin. The patient will be monitored for bladder retention, nurse was instructed to scan bladder later during the day and if there is significant urinary retention, the patient will need to have Young catheter inserted. Angélica Guerrero MD
== END 2017-03-26 15:12 | DRG 62 ==
LOC: ED 01:06 → ERH 03:26 → CCU 05:11 → 3RNO 03-24 18:43
PROVIDERS: ADMIT Family Medicine; ATTEND Family Medicine
PROC: 3E03317 Introduction of Other Thrombolytic into Peripheral Vein, Percutaneous Approach (ICD-10-PCS; principal; 2017-03-22)
PROC: 0T9B70Z Drainage of Bladder with Drainage Device, Via Natural or Artificial Opening (ICD-10-PCS; 2017-03-24)
DX: I63.511 Cerebral infarction due to unspecified occlusion or stenosis of right middle cerebral artery (principal); G81.94 Hemiplegia, unspecified affecting left nondominant side; R56.9 Unspecified convulsions; N31.9 Neuromuscular dysfunction of bladder, unspecified; N39.0 Urinary tract infection, site not specified; D63.8 Anemia in other chronic diseases classified elsewhere; R29.720 NIHSS score 20; I10 Essential (primary) hypertension; E78.5 Hyperlipidemia, unspecified; R48.2 Apraxia; R40.2423 Glasgow coma scale score 9-12, at hospital admission; F41.9 Anxiety disorder, unspecified; Z86.73 Personal history of transient ischemic attack (TIA), and cerebral infarction without residual deficits; Z88.5 Allergy status to narcotic agent; Z87.891 Personal history of nicotine dependence; Z78.1 Physical restraint status

== ENCOUNTER 2018-05-24 11:02 | Outpatient (CLI) | payer MEDICARE | END 2018-05-24 11:03 | disposition home or self-care (01) | LOC: RAD 11:02 ==